=== PATIENT | female | born 1950 | race Caucasian/White ===

== ENCOUNTER 2018-01-10 18:52 | Inpatient (IN) ==
[2018-01-10] MEDS ORDERED: MORPHINE 4 MG/1 ML VIAL IV STA ×2 (19:21→20:49)
[2018-01-10] MEDS ORDERED: ACETAMINOPHEN 500 MG TABLET PO STA (19:22)
[2018-01-10] MEDS ORDERED: MORPHINE 4 MG/1 ML VIAL ONE ×2 (19:46→20:54)
[2018-01-10] MEDS ORDERED: ACETAMINOPHEN 500 MG TABLET ONE (19:47)
[2018-01-10 19:53] LABS: Basophils # 0.1 10*3/uL (0.0-0.2); Basophils % 0.3 % (0.0-0.8); Eosinophils % 0.1 % (0.00-10.9); Hematocrit 41.2 VOL% (35.7-47.0); Hemoglobin 13.8 GM/DL (12.0-16.0); Immature Granulocytes % 0.4 %; Immature Granulocytes Absolute 0.06 #; Lymphocytes # 0.6 10*3/uL (1.4-4.0); Lymphocytes % 3.8 % (21.3-54.2); Mean Corpuscular HGB Conc 33.5 GM/DL (32-36); Mean Corpuscular Hemoglobin 34 PG (27-34); Mean Corpuscular Volume 102.5 FL (87-102); Mean Platelet Volume 10.4 FL (9.6-12.0); Monocytes % 6.9 % (1.7-12.7); Neutrophils # 13.4 10*3/uL (1.4-7.4); Neutrophils % 88.5 % (38.7-73.9); Platelet Count 230 T/CUMM (130-400); Red Blood Count 4.02 MC/CUMM (3.8-5.5); Red Cell Distribution Width 14.9 % (9.3-17.3); White Blood Count 15.1 T/CUMM (4-12)
[2018-01-10 20:14] LABS: Band Neutrophils 2 % (0-10); Lymphocytes 7 % (20-55); Platelet Estimate Normal; Segmented Neutrophils 86 % (50-85); Total Cells Counted 100
[2018-01-10 20:15] LABS: Macrocytosis Slight
[2018-01-10 20:21] LABS: Calcium 9.3 MG/DL (8.5-10.1); Osmolality,Calculated 268.4 MOS/KG (273-304); Potassium 4.7 MMOL/L (3.5-5.1)
[2018-01-10] MEDS ORDERED: ALBUTEROL/IPRATROPIUM 3 ML NEB RESP TX STA (21:48)
[2018-01-10] MEDS ORDERED: ONDANSETRON 4 MG/2 ML VIAL IV PRN (23:28)
[2018-01-10] MEDS ORDERED: LACTULOSE 20 GM/30 ML UDCUP PO PRN (23:28)
[2018-01-11] MEDS: MORPHINE 4 MG/1 ML VIAL IV PRN ×2 (00:20→11:24)
[2018-01-11] MEDS ORDERED: KETOROLAC 60 MG/2 ML VIAL IM STA (01:05)
[2018-01-11] MEDS: SODIUM CHLORIDE 0.9% 1,000 ML IV SCH ×2 (02:20→15:41)
[2018-01-11] MEDS: LEVOTHYROXINE 75 MCG TABLET PO SCH (05:49)
[2018-01-11] MEDS: ENOXAPARIN 40 MG/0.4 ML SYRINGE SUBCUT SCH (11:28)
[2018-01-11] MEDS: CARBIDOPA/LEVODOPA 25-100 MG TABLET PO SCH ×3 (11:30→21:14)
[2018-01-11] MEDS: SPIRONOLACTONE 25 MG TABLET PO SCH (11:31)
[2018-01-11] MEDS: MAGNESIUM OXIDE 400 MG TABLET PO SCH ×2 (11:31→21:14)
[2018-01-11] MEDS: AMIODARONE 200 MG TABLET PO SCH (11:31)
[2018-01-11] MEDS: PRAMIPEXOLE 0.25 MG TABLET PO SCH ×2 (11:32→21:14)
[2018-01-11] MEDS: GABAPENTIN 100 MG CAPSULE PO SCH ×3 (11:33→21:14)
[2018-01-11] MEDS: PANTOPRAZOLE 40 MG TABLET PO SCH (11:33)
[2018-01-11] MEDS: FUROSEMIDE 40 MG TABLET PO SCH (11:33)
[2018-01-11] MEDS: COLESTIPOL 1 GM TABLET PO SCH (11:33)
[2018-01-11] MEDS: ASPIRIN EC 81 MG TABLET PO SCH (11:34)
[2018-01-11] MEDS: POTASSIUM CHLORIDE 20 MEQ TABLET PO SCH (11:34)
[2018-01-11] MEDS: DILTIAZEM CD 180 MG CAPSULE PO SCH (11:35)
[2018-01-11] MEDS: hydrALAZINE 25 MG TABLET PO SCH ×2 (11:35→21:14)
[2018-01-11] MEDS: IRON (CARBONYL)/VIT C/B12/FA TABLET PO SCH (11:35)
[2018-01-11] MEDS: AZELASTINE NASAL 137 MCG/SPRAY 30 ML BOTTLE BOTH NARES SCH ×2 (11:36→21:15)
[2018-01-11] MEDS: PRAVASTATIN 20 MG TABLET PO SCH (21:15)
[2018-01-11] MEDS ORDERED: ACETAMINOPHEN 325 MG TABLET PO PRN (21:57)
[2018-01-12 04:25] LABS: Amorphous Crystals,Urine Occasional /HPF (Few); Apearance,Urine Slightly Hazy (Clear); Bacteria,Urine Few /HPF (Few); Bilirubin,Urine Negative (Negative); Blood, Urine Large mg/dL (Negative); Glucose,Urine (UA) Negative (Negative); Granular Casts,Urine 4 /LPF (0-1); Ketones,Urine Negative (Negative); Mucus,Urine Few /LPF (Occasional); Nitrite,Urine Negative (Negative); Protein,Urine 100 MG/DL; RBC,Urine 1211 /HPF (0-4); Urine Color Amber (Yellow); Urine Specific Gravity 1.018 (1.001-1.035); Urine Urobilinogen < 2.0 EU/DL (0.2-1.0); WBC,Urine 38 /HPF (0-6)
[2018-01-12] MEDS: LEVOTHYROXINE 75 MCG TABLET PO SCH (05:25)
[2018-01-12] MEDS: SODIUM CHLORIDE 0.9% 1,000 ML IV SCH ×2 (05:25→18:07)
[2018-01-12] MEDS: MORPHINE 4 MG/1 ML VIAL IV PRN (08:12)
[2018-01-12] MEDS: AZELASTINE NASAL 137 MCG/SPRAY 30 ML BOTTLE BOTH NARES SCH ×2 (08:21→21:45)
[2018-01-12] MEDS: IRON (CARBONYL)/VIT C/B12/FA TABLET PO SCH (10:07)
[2018-01-12] MEDS: PANTOPRAZOLE 40 MG TABLET PO SCH (10:07)
[2018-01-12] MEDS: ASPIRIN EC 81 MG TABLET PO SCH (10:08)
[2018-01-12] MEDS: SPIRONOLACTONE 25 MG TABLET PO SCH (10:08)
[2018-01-12] MEDS: DILTIAZEM CD 180 MG CAPSULE PO SCH (10:08)
[2018-01-12] MEDS: CARBIDOPA/LEVODOPA 25-100 MG TABLET PO SCH ×3 (10:09→21:44)
[2018-01-12] MEDS: AMIODARONE 200 MG TABLET PO SCH (10:09)
[2018-01-12] MEDS: FUROSEMIDE 40 MG TABLET PO SCH (10:09)
[2018-01-12] MEDS: COLESTIPOL 1 GM TABLET PO SCH (10:10)
[2018-01-12] MEDS: MAGNESIUM OXIDE 400 MG TABLET PO SCH ×2 (10:10→21:44)
[2018-01-12] MEDS: GABAPENTIN 100 MG CAPSULE PO SCH ×3 (10:10→21:44)
[2018-01-12] MEDS: PRAMIPEXOLE 0.25 MG TABLET PO SCH ×2 (10:10→21:44)
[2018-01-12] MEDS: POTASSIUM CHLORIDE 20 MEQ TABLET PO SCH (10:11)
[2018-01-12] MEDS: ENOXAPARIN 40 MG/0.4 ML SYRINGE SUBCUT SCH (10:12)
[2018-01-12] MEDS: hydrALAZINE 25 MG TABLET PO SCH ×2 (10:12→21:44)
[2018-01-12] MEDS ORDERED: cefTRIAXone 1,000 MG in SYRINGE 1 EACH IV ONE (10:54)
[2018-01-12] MEDS ORDERED: MAGNESIUM HYDROXIDE SUSP 30 ML UDCUP PO ONE (11:09)
[2018-01-12] MEDS: ALBUTEROL/IPRATROPIUM 3 ML NEB RESP TX SCH ×2 (13:30→20:05)
[2018-01-12] MEDS ORDERED: [UNRECOGNIZED DRUG - OTHER] INH SCH (13:30)
[2018-01-12] MEDS: MONTELUKAST 10 MG TABLET PO SCH (15:05)
[2018-01-12] MEDS: FLUTICASONE 50 MCG NASAL SPRAY 16 GM BOTTLE BOTH NARES SCH ×2 (15:09→21:45)
[2018-01-12] MEDS: PRAVASTATIN 20 MG TABLET PO SCH (21:44)
[2018-01-13] MEDS: ALBUTEROL/IPRATROPIUM 3 ML NEB RESP TX SCH ×4 (00:08→19:35)
[2018-01-13] MEDS: SODIUM CHLORIDE 0.9% 1,000 ML IV SCH ×2 (06:53→20:52)
[2018-01-13] MEDS: LEVOTHYROXINE 75 MCG TABLET PO SCH (06:53)
[2018-01-13] MEDS: POTASSIUM CHLORIDE 20 MEQ TABLET PO SCH (08:59)
[2018-01-13] MEDS: MONTELUKAST 10 MG TABLET PO SCH (08:59)
[2018-01-13] MEDS: CARBIDOPA/LEVODOPA 25-100 MG TABLET PO SCH ×3 (08:59→20:54)
[2018-01-13] MEDS: GABAPENTIN 100 MG CAPSULE PO SCH ×3 (08:59→20:55)
[2018-01-13] MEDS: FUROSEMIDE 40 MG TABLET PO SCH (08:59)
[2018-01-13] MEDS: SPIRONOLACTONE 25 MG TABLET PO SCH (09:00)
[2018-01-13] MEDS: DILTIAZEM CD 180 MG CAPSULE PO SCH (09:00)
[2018-01-13] MEDS: AMIODARONE 200 MG TABLET PO SCH (09:00)
[2018-01-13] MEDS: MAGNESIUM OXIDE 400 MG TABLET PO SCH ×2 (09:00→20:55)
[2018-01-13] MEDS: COLESTIPOL 1 GM TABLET PO SCH (09:00)
[2018-01-13] MEDS: AZELASTINE NASAL 137 MCG/SPRAY 30 ML BOTTLE BOTH NARES SCH ×2 (09:00→20:57)
[2018-01-13] MEDS: ASPIRIN EC 81 MG TABLET PO SCH (09:00)
[2018-01-13] MEDS: IRON (CARBONYL)/VIT C/B12/FA TABLET PO SCH (09:00)
[2018-01-13] MEDS: PANTOPRAZOLE 40 MG TABLET PO SCH (09:00)
[2018-01-13] MEDS: hydrALAZINE 25 MG TABLET PO SCH ×2 (09:00→20:55)
[2018-01-13] MEDS: FLUTICASONE 50 MCG NASAL SPRAY 16 GM BOTTLE BOTH NARES SCH ×2 (09:01→20:57)
[2018-01-13] MEDS: PRAMIPEXOLE 0.25 MG TABLET PO SCH ×2 (09:03→20:54)
[2018-01-13] MEDS: ENOXAPARIN 40 MG/0.4 ML SYRINGE SUBCUT SCH (09:04)
[2018-01-13 14:51] LABS: Basophils % 0.2 % (0.0-0.8); Hematocrit 36.8 VOL% (35.7-47.0); Hemoglobin 11.6 GM/DL (12.0-16.0); Immature Granulocytes % 0.9 %; Immature Granulocytes Absolute 0.11 #; Lymphocytes # 0.7 10*3/uL (1.4-4.0); Lymphocytes % 5.8 % (21.3-54.2); Mean Corpuscular HGB Conc 31.5 GM/DL (32-36); Mean Corpuscular Hemoglobin 34 PG (27-34); Mean Corpuscular Volume 107.3 FL (87-102); Mean Platelet Volume 10.8 FL (9.6-12.0); Neutrophils # 10.8 10*3/uL (1.4-7.4); Neutrophils % 85.1 % (38.7-73.9); Platelet Count 183 T/CUMM (130-400); Red Blood Count 3.43 MC/CUMM (3.8-5.5); White Blood Count 12.7 T/CUMM (4-12)
[2018-01-13 15:07] LABS: Osmolality,Calculated 269.2 MOS/KG (273-304); Potassium 4.4 MMOL/L (3.5-5.1)
[2018-01-13] MEDS: PRAVASTATIN 20 MG TABLET PO SCH (20:55)
[2018-01-14] MEDS: ALBUTEROL/IPRATROPIUM 3 ML NEB RESP TX SCH ×4 (01:40→19:27)
[2018-01-14 05:35] LABS: Basophils % 0.2 % (0.0-0.8); Hematocrit 34.1 VOL% (35.7-47.0); Immature Granulocytes % 0.6 %; Immature Granulocytes Absolute 0.08 #; Lymphocytes # 0.6 10*3/uL (1.4-4.0); Lymphocytes % 4.5 % (21.3-54.2); Mean Corpuscular HGB Conc 32.3 GM/DL (32-36); Mean Corpuscular Hemoglobin 34 PG (27-34); Mean Platelet Volume 11.6 FL (9.6-12.0); Monocytes # 1.1 10*3/uL (0.11-0.8); Monocytes % 8.6 % (1.7-12.7); Neutrophils # 10.8 10*3/uL (1.4-7.4); Neutrophils % 86.1 % (38.7-73.9); Platelet Count 187 T/CUMM (130-400); Red Blood Count 3.28 MC/CUMM (3.8-5.5); Red Cell Distribution Width 15.1 % (9.3-17.3); White Blood Count 12.5 T/CUMM (4-12)
[2018-01-14 05:51] LABS: Calcium 7.8 MG/DL (8.5-10.1); Osmolality,Calculated 268.4 MOS/KG (273-304); Potassium 4.3 MMOL/L (3.5-5.1)
[2018-01-14] MEDS: LEVOTHYROXINE 75 MCG TABLET PO SCH (05:52)
[2018-01-14 05:59] LABS: Hypochromasia 1+; Lymphocytes 2 % (20-55); Ovalocytes Slight; Platelet Estimate Normal; Segmented Neutrophils 87 % (50-85); Total Cells Counted 100
[2018-01-14] MEDS ORDERED: FUROSEMIDE 40 MG/4 ML VIAL IV ONE (07:10)
[2018-01-14] MEDS: ENOXAPARIN 40 MG/0.4 ML SYRINGE SUBCUT SCH (08:34)
[2018-01-14] MEDS: FUROSEMIDE 40 MG TABLET PO SCH (08:34)
[2018-01-14 09:32] LABS: ABG Base Excess -2.8 MMOL/L (-2.5-2.5); ABG HCO3 21.9 MMOL/L (20-26); ABG Oxygen Saturation 87.6 % (95-100); ABG PCO2 38.9 MM HG (35-48); ABG PH 7.366 (7.35-7.45); ABG PO2 54.6 MM HG (80-95)
[2018-01-14 10:43] LABS: ABG Base Excess -1.8 MMOL/L (-2.5-2.5); ABG HCO3 22.7 MMOL/L (20-26); ABG Oxygen Saturation 89.1 % (95-100); ABG PCO2 38.2 MM HG (35-48); ABG PH 7.386 (7.35-7.45); ABG PO2 56.6 MM HG (80-95); ABG TCO2 20.5 MMOL/L (23-27)
[2018-01-14 12:06] LABS: Apearance,Urine CLEAR (Clear); Bilirubin,Urine Negative (Negative); Blood, Urine Negative (Negative); Glucose,Urine (UA) Negative (Negative); Ketones,Urine Negative (Negative); Nitrite,Urine Negative (Negative); Protein,Urine Negative; RBC,Urine 2 /HPF (0-4); Urine Color Yellow (Yellow); Urine Urobilinogen < 2.0 EU/DL (0.2-1.0); WBC,Urine 3 /HPF (0-6)
[2018-01-14] MEDS: AMIODARONE 200 MG TABLET PO SCH (15:24)
[2018-01-14] MEDS: MONTELUKAST 10 MG TABLET PO SCH (15:24)
[2018-01-14] MEDS: hydrALAZINE 25 MG TABLET PO SCH ×2 (15:24→20:51)
[2018-01-14] MEDS: SPIRONOLACTONE 25 MG TABLET PO SCH (15:24)
[2018-01-14] MEDS: GABAPENTIN 100 MG CAPSULE PO SCH ×3 (15:26→20:51)
[2018-01-14] MEDS: MAGNESIUM OXIDE 400 MG TABLET PO SCH ×2 (15:26→20:51)
[2018-01-14] MEDS: COLESTIPOL 1 GM TABLET PO SCH (15:26)
[2018-01-14] MEDS: PANTOPRAZOLE 40 MG TABLET PO SCH (15:26)
[2018-01-14] MEDS: PRAMIPEXOLE 0.25 MG TABLET PO SCH ×2 (15:26→20:51)
[2018-01-14] MEDS: ASPIRIN EC 81 MG TABLET PO SCH (15:27)
[2018-01-14] MEDS: POTASSIUM CHLORIDE 20 MEQ TABLET PO SCH (15:27)
[2018-01-14] MEDS: CARBIDOPA/LEVODOPA 25-100 MG TABLET PO SCH ×3 (15:27→20:51)
[2018-01-14] MEDS: DILTIAZEM CD 180 MG CAPSULE PO SCH (15:27)
[2018-01-14] MEDS: AZELASTINE NASAL 137 MCG/SPRAY 30 ML BOTTLE BOTH NARES SCH ×2 (15:28→20:58)
[2018-01-14] MEDS: FLUTICASONE 50 MCG NASAL SPRAY 16 GM BOTTLE BOTH NARES SCH ×2 (15:28→20:58)
[2018-01-14] MEDS: IRON (CARBONYL)/VIT C/B12/FA TABLET PO SCH (15:28)
[2018-01-14] MEDS: PRAVASTATIN 20 MG TABLET PO SCH (20:51)
[2018-01-15] MEDS: ALBUTEROL/IPRATROPIUM 3 ML NEB RESP TX SCH ×4 (00:16→19:33)
[2018-01-15] MEDS: LEVOTHYROXINE 75 MCG TABLET PO SCH (06:33)
[2018-01-15] MEDS: DILTIAZEM CD 180 MG CAPSULE PO SCH (08:26)
[2018-01-15] MEDS: ENOXAPARIN 40 MG/0.4 ML SYRINGE SUBCUT SCH (08:26)
[2018-01-15] MEDS: PRAMIPEXOLE 0.25 MG TABLET PO SCH ×2 (08:26→20:46)
[2018-01-15] MEDS: POTASSIUM CHLORIDE 20 MEQ TABLET PO SCH (08:26)
[2018-01-15] MEDS: GABAPENTIN 100 MG CAPSULE PO SCH ×3 (08:27→20:46)
[2018-01-15] MEDS: MONTELUKAST 10 MG TABLET PO SCH (08:27)
[2018-01-15] MEDS: COLESTIPOL 1 GM TABLET PO SCH (08:27)
[2018-01-15] MEDS: MAGNESIUM OXIDE 400 MG TABLET PO SCH ×2 (08:27→20:46)
[2018-01-15] MEDS: SPIRONOLACTONE 25 MG TABLET PO SCH (08:27)
[2018-01-15] MEDS: PANTOPRAZOLE 40 MG TABLET PO SCH (08:27)
[2018-01-15] MEDS: AZELASTINE NASAL 137 MCG/SPRAY 30 ML BOTTLE BOTH NARES SCH ×2 (08:28→20:47)
[2018-01-15] MEDS: ASPIRIN EC 81 MG TABLET PO SCH (08:28)
[2018-01-15] MEDS: AMIODARONE 200 MG TABLET PO SCH (08:28)
[2018-01-15] MEDS: FUROSEMIDE 40 MG TABLET PO SCH (08:28)
[2018-01-15] MEDS: hydrALAZINE 25 MG TABLET PO SCH ×2 (08:28→20:46)
[2018-01-15] MEDS: CARBIDOPA/LEVODOPA 25-100 MG TABLET PO SCH ×3 (08:28→20:46)
[2018-01-15] MEDS: IRON (CARBONYL)/VIT C/B12/FA TABLET PO SCH (08:29)
[2018-01-15] MEDS: FLUTICASONE 50 MCG NASAL SPRAY 16 GM BOTTLE BOTH NARES SCH ×2 (08:29→20:47)
[2018-01-15] MEDS: LEVOFLOXACIN 250 MG TABLET PO SCH (08:32)
[2018-01-15] MEDS: FUROSEMIDE 40 MG/4 ML VIAL IV SCH (08:43)
[2018-01-15 08:45] LABS: Basophils % 0.4 % (0.0-0.8); Eosinophils % 0.4 % (0.00-10.9); Hematocrit 34.8 VOL% (35.7-47.0); Immature Granulocytes % 0.6 %; Immature Granulocytes Absolute 0.06 #; Lymphocytes # 0.6 10*3/uL (1.4-4.0); Lymphocytes % 6.3 % (21.3-54.2); Mean Corpuscular HGB Conc 31.6 GM/DL (32-36); Mean Corpuscular Hemoglobin 34 PG (27-34); Mean Corpuscular Volume 106.1 FL (87-102); Mean Platelet Volume 10.9 FL (9.6-12.0); Monocytes # 0.9 10*3/uL (0.11-0.8); Monocytes % 9.3 % (1.7-12.7); Platelet Count 204 T/CUMM (130-400); Red Blood Count 3.28 MC/CUMM (3.8-5.5); Red Cell Distribution Width 14.9 % (9.3-17.3); White Blood Count 9.7 T/CUMM (4-12)
[2018-01-15 09:24] LABS: Calcium 8.3 MG/DL (8.5-10.1); Osmolality,Calculated 279.8 MOS/KG (273-304); Potassium 3.5 MMOL/L (3.5-5.1)
[2018-01-15] MEDS: CLINDAMYCIN INJ 600 MG in PREMIX 1 EACH IV SCH ×2 (09:35→16:38)
[2018-01-15] MEDS: ZINC OXIDE PASTE 113 GM TUBE TOP SCH (10:58)
[2018-01-15] MEDS: PRAVASTATIN 20 MG TABLET PO SCH (20:46)
[2018-01-15] MEDS: MORPHINE 4 MG/1 ML VIAL IV PRN (22:06)
[2018-01-16] MEDS: ALBUTEROL/IPRATROPIUM 3 ML NEB RESP TX SCH ×5 (00:09→23:53)
[2018-01-16] MEDS: CLINDAMYCIN INJ 600 MG in PREMIX 1 EACH IV SCH ×3 (01:52→16:53)
[2018-01-16] MEDS: ZINC OXIDE PASTE 113 GM TUBE TOP SCH ×3 (01:53→20:39)
[2018-01-16 05:57] LABS: Basophils % 0.4 % (0.0-0.8); Eosinophils # 0.2 10*3/uL (0.0-0.87); Eosinophils % 1.6 % (0.00-10.9); Hematocrit 33.7 VOL% (35.7-47.0); Hemoglobin 11.1 GM/DL (12.0-16.0); Immature Granulocytes % 0.4 %; Immature Granulocytes Absolute 0.04 #; Lymphocytes # 0.6 10*3/uL (1.4-4.0); Lymphocytes % 6.6 % (21.3-54.2); Mean Corpuscular HGB Conc 32.9 GM/DL (32-36); Mean Corpuscular Hemoglobin 34 PG (27-34); Mean Corpuscular Volume 103.4 FL (87-102); Mean Platelet Volume 11.8 FL (9.6-12.0); Monocytes # 0.9 10*3/uL (0.11-0.8); Monocytes % 9.8 % (1.7-12.7); NRBC # 0.03 10*3/uL; Neutrophils # 7.4 10*3/uL (1.4-7.4); Neutrophils % 81.2 % (38.7-73.9); Platelet Count 234 T/CUMM (130-400); Red Blood Count 3.26 MC/CUMM (3.8-5.5); Red Cell Distribution Width 14.7 % (9.3-17.3); White Blood Count 9.1 T/CUMM (4-12)
[2018-01-16] MEDS: LEVOTHYROXINE 75 MCG TABLET PO SCH (06:09)
[2018-01-16 06:22] LABS: Calcium 8.3 MG/DL (8.5-10.1); Osmolality,Calculated 275.2 MOS/KG (273-304); Potassium 4.3 MMOL/L (3.5-5.1)
[2018-01-16] MEDS: ENOXAPARIN 40 MG/0.4 ML SYRINGE SUBCUT SCH (08:28)
[2018-01-16] MEDS: PRAMIPEXOLE 0.25 MG TABLET PO SCH ×2 (08:28→20:39)
[2018-01-16] MEDS: COLESTIPOL 1 GM TABLET PO SCH (08:28)
[2018-01-16] MEDS: DILTIAZEM CD 180 MG CAPSULE PO SCH (08:28)
[2018-01-16] MEDS: SPIRONOLACTONE 25 MG TABLET PO SCH (08:29)
[2018-01-16] MEDS: MAGNESIUM OXIDE 400 MG TABLET PO SCH ×2 (08:29→20:39)
[2018-01-16] MEDS: LEVOFLOXACIN 250 MG TABLET PO SCH (08:29)
[2018-01-16] MEDS: MONTELUKAST 10 MG TABLET PO SCH (08:29)
[2018-01-16] MEDS: POTASSIUM CHLORIDE 20 MEQ TABLET PO SCH ×2 (08:29→08:46)
[2018-01-16] MEDS: AMIODARONE 200 MG TABLET PO SCH (08:29)
[2018-01-16] MEDS: GABAPENTIN 100 MG CAPSULE PO SCH ×3 (08:29→20:39)
[2018-01-16] MEDS: PANTOPRAZOLE 40 MG TABLET PO SCH (08:29)
[2018-01-16] MEDS: hydrALAZINE 25 MG TABLET PO SCH ×2 (08:30→20:39)
[2018-01-16] MEDS: AZELASTINE NASAL 137 MCG/SPRAY 30 ML BOTTLE BOTH NARES SCH ×2 (08:30→20:37)
[2018-01-16] MEDS: CARBIDOPA/LEVODOPA 25-100 MG TABLET PO SCH ×3 (08:30→20:39)
[2018-01-16] MEDS: ASPIRIN EC 81 MG TABLET PO SCH (08:30)
[2018-01-16] MEDS: FUROSEMIDE 40 MG/4 ML VIAL IV SCH (08:31)
[2018-01-16] MEDS: IRON (CARBONYL)/VIT C/B12/FA TABLET PO SCH (08:31)
[2018-01-16] MEDS: CYANOCOBALAMIN 1000 MCG/1 ML VIAL IM SCH (08:31)
[2018-01-16] MEDS: FLUTICASONE 50 MCG NASAL SPRAY 16 GM BOTTLE BOTH NARES SCH ×2 (08:31→20:37)
[2018-01-16] MEDS ORDERED: LORazepam 2 MG/1 ML VIAL IV PRN (09:06)
[2018-01-16 10:27] LABS: Basophils # 0.1 10*3/uL (0.0-0.2); Basophils % 0.5 % (0.0-0.8); Eosinophils # 0.1 10*3/uL (0.0-0.87); Eosinophils % 1.1 % (0.00-10.9); Hematocrit 36.1 VOL% (35.7-47.0); Hemoglobin 11.7 GM/DL (12.0-16.0); Immature Granulocytes % 0.6 %; Immature Granulocytes Absolute 0.06 #; Lymphocytes # 0.5 10*3/uL (1.4-4.0); Lymphocytes % 5.1 % (21.3-54.2); Mean Corpuscular HGB Conc 32.4 GM/DL (32-36); Mean Corpuscular Hemoglobin 34 PG (27-34); Mean Corpuscular Volume 105.2 FL (87-102); Mean Platelet Volume 11.7 FL (9.6-12.0); Monocytes # 0.7 10*3/uL (0.11-0.8); Neutrophils # 8.1 10*3/uL (1.4-7.4); Neutrophils % 85.7 % (38.7-73.9); Platelet Count 261 T/CUMM (130-400); Red Blood Count 3.43 MC/CUMM (3.8-5.5); Red Cell Distribution Width 14.8 % (9.3-17.3); White Blood Count 9.5 T/CUMM (4-12)
[2018-01-16 10:56] LABS: Folate > 24.0 NG/ML (5.4-24.0); Vitamin B12 > 2000 PG/ML (211-911)
[2018-01-16 11:31] LABS: Sedimentation Rate-Westergren 88 MM/HR (0-30)
[2018-01-16] MEDS: PRAVASTATIN 20 MG TABLET PO SCH (20:39)
[2018-01-16] MEDS: PHENOL 1.4% THROAT SPRAY 177 ML BOTTLE PO PRN (21:30)
[2018-01-17] MEDS: CLINDAMYCIN INJ 600 MG in PREMIX 1 EACH IV SCH ×3 (00:44→17:31)
[2018-01-17 05:15] LABS: Basophils # 0.1 10*3/uL (0.0-0.2); Basophils % 0.5 % (0.0-0.8); Eosinophils # 0.2 10*3/uL (0.0-0.87); Eosinophils % 1.6 % (0.00-10.9); Hematocrit 34.6 VOL% (35.7-47.0); Hemoglobin 11.2 GM/DL (12.0-16.0); Immature Granulocytes % 0.7 %; Immature Granulocytes Absolute 0.07 #; Lymphocytes # 0.7 10*3/uL (1.4-4.0); Lymphocytes % 7.2 % (21.3-54.2); Mean Corpuscular HGB Conc 32.4 GM/DL (32-36); Mean Corpuscular Hemoglobin 34 PG (27-34); Mean Corpuscular Volume 103.6 FL (87-102); Mean Platelet Volume 10.7 FL (9.6-12.0); Monocytes % 9.9 % (1.7-12.7); Neutrophils # 7.7 10*3/uL (1.4-7.4); Neutrophils % 80.1 % (38.7-73.9); Platelet Count 280 T/CUMM (130-400); Red Blood Count 3.34 MC/CUMM (3.8-5.5); Red Cell Distribution Width 14.7 % (9.3-17.3); White Blood Count 9.6 T/CUMM (4-12)
[2018-01-17] MEDS: LEVOTHYROXINE 75 MCG TABLET PO SCH (05:40)
[2018-01-17] MEDS: ALBUTEROL/IPRATROPIUM 3 ML NEB RESP TX SCH ×3 (07:10→20:26)
[2018-01-17] MEDS ORDERED: MORPHINE 4 MG/1 ML VIAL IV PRN (07:54)
[2018-01-17 08:19] LABS: Hemoglobin A1 (Alkaline) 97.3 % (96.5-98.5); Hemoglobin A2 (Alkaline) 2.7 % (1.5-3.5)
[2018-01-17] MEDS: CYANOCOBALAMIN 1000 MCG/1 ML VIAL IM SCH (09:28)
[2018-01-17] MEDS: ENOXAPARIN 40 MG/0.4 ML SYRINGE SUBCUT SCH (09:29)
[2018-01-17] MEDS: MAGNESIUM OXIDE 400 MG TABLET PO SCH ×2 (09:29→21:07)
[2018-01-17] MEDS: FUROSEMIDE 40 MG/4 ML VIAL IV SCH ×2 (09:29→15:40)
[2018-01-17] MEDS: hydrALAZINE 25 MG TABLET PO SCH ×2 (09:30→21:07)
[2018-01-17] MEDS: GABAPENTIN 100 MG CAPSULE PO SCH ×3 (09:30→21:08)
[2018-01-17] MEDS: CARBIDOPA/LEVODOPA 25-100 MG TABLET PO SCH ×3 (09:30→21:08)
[2018-01-17] MEDS: MONTELUKAST 10 MG TABLET PO SCH (09:30)
[2018-01-17] MEDS: PRAMIPEXOLE 0.25 MG TABLET PO SCH ×2 (09:30→21:08)
[2018-01-17] MEDS: COLESTIPOL 1 GM TABLET PO SCH (09:30)
[2018-01-17] MEDS: LEVOFLOXACIN 250 MG TABLET PO SCH (09:31)
[2018-01-17] MEDS: POTASSIUM CHLORIDE 20 MEQ TABLET PO SCH (09:31)
[2018-01-17] MEDS: PANTOPRAZOLE 40 MG TABLET PO SCH (09:31)
[2018-01-17] MEDS: SPIRONOLACTONE 25 MG TABLET PO SCH (09:31)
[2018-01-17] MEDS: ASPIRIN EC 81 MG TABLET PO SCH (09:31)
[2018-01-17] MEDS: FLUTICASONE 50 MCG NASAL SPRAY 16 GM BOTTLE BOTH NARES SCH ×2 (09:32→21:09)
[2018-01-17] MEDS: ZINC OXIDE PASTE 113 GM TUBE TOP SCH ×2 (09:32→21:09)
[2018-01-17] MEDS: AZELASTINE NASAL 137 MCG/SPRAY 30 ML BOTTLE BOTH NARES SCH ×2 (09:32→21:11)
[2018-01-17] MEDS: DILTIAZEM CD 180 MG CAPSULE PO SCH (09:36)
[2018-01-17] MEDS: AMIODARONE 200 MG TABLET PO SCH (09:37)
[2018-01-17] MEDS: IRON (CARBONYL)/VIT C/B12/FA TABLET PO SCH (09:39)
[2018-01-17] MEDS: PRAVASTATIN 20 MG TABLET PO SCH (21:08)
[2018-01-18] MEDS: ALBUTEROL/IPRATROPIUM 3 ML NEB RESP TX SCH ×4 (00:38→20:06)
[2018-01-18] MEDS: CLINDAMYCIN INJ 600 MG in PREMIX 1 EACH IV SCH ×3 (00:55→17:58)
[2018-01-18 05:33] LABS: Basophils # 0.1 10*3/uL (0.0-0.2); Basophils % 0.6 % (0.0-0.8); Eosinophils # 0.1 10*3/uL (0.0-0.87); Eosinophils % 1.2 % (0.00-10.9); Hematocrit 38.7 VOL% (35.7-47.0); Immature Granulocytes % 0.8 %; Immature Granulocytes Absolute 0.08 #; Lymphocytes # 0.9 10*3/uL (1.4-4.0); Lymphocytes % 8.7 % (21.3-54.2); Mean Corpuscular Hemoglobin 33 PG (27-34); Mean Corpuscular Volume 105.4 FL (87-102); Mean Platelet Volume 10.5 FL (9.6-12.0); Monocytes # 0.8 10*3/uL (0.11-0.8); Monocytes % 8.4 % (1.7-12.7); Neutrophils # 7.9 10*3/uL (1.4-7.4); Neutrophils % 80.3 % (38.7-73.9); Platelet Count 326 T/CUMM (130-400); Red Blood Count 3.67 MC/CUMM (3.8-5.5); Red Cell Distribution Width 14.7 % (9.3-17.3); White Blood Count 9.8 T/CUMM (4-12)
[2018-01-18 06:01] LABS: Calcium 8.9 MG/DL (8.5-10.1); Osmolality,Calculated 267.4 MOS/KG (273-304); Potassium 4.3 MMOL/L (3.5-5.1)
[2018-01-18] MEDS: LEVOTHYROXINE 75 MCG TABLET PO SCH (06:32)
[2018-01-18] MEDS: COLESTIPOL 1 GM TABLET PO SCH (08:54)
[2018-01-18] MEDS: PRAMIPEXOLE 0.25 MG TABLET PO SCH ×2 (08:54→21:42)
[2018-01-18] MEDS: ENOXAPARIN 40 MG/0.4 ML SYRINGE SUBCUT SCH (08:54)
[2018-01-18] MEDS: MONTELUKAST 10 MG TABLET PO SCH (08:55)
[2018-01-18] MEDS: metOLazone 5 MG TABLET PO SCH (08:55)
[2018-01-18] MEDS: hydrALAZINE 25 MG TABLET PO SCH ×2 (08:55→20:07)
[2018-01-18] MEDS: ASPIRIN EC 81 MG TABLET PO SCH (08:55)
[2018-01-18] MEDS: AMIODARONE 200 MG TABLET PO SCH (08:55)
[2018-01-18] MEDS: SPIRONOLACTONE 25 MG TABLET PO SCH (08:55)
[2018-01-18] MEDS: LEVOFLOXACIN 250 MG TABLET PO SCH (08:56)
[2018-01-18] MEDS: POTASSIUM CHLORIDE 20 MEQ TABLET PO SCH (08:56)
[2018-01-18] MEDS: MAGNESIUM OXIDE 400 MG TABLET PO SCH ×2 (08:56→20:09)
[2018-01-18] MEDS: GABAPENTIN 100 MG CAPSULE PO SCH ×3 (08:56→21:42)
[2018-01-18] MEDS: DILTIAZEM CD 180 MG CAPSULE PO SCH (08:56)
[2018-01-18] MEDS: FUROSEMIDE 40 MG/4 ML VIAL IV SCH ×2 (08:57→17:58)
[2018-01-18] MEDS: CYANOCOBALAMIN 1000 MCG/1 ML VIAL IM SCH (08:57)
[2018-01-18] MEDS: IRON (CARBONYL)/VIT C/B12/FA TABLET PO SCH (08:57)
[2018-01-18] MEDS: PANTOPRAZOLE 40 MG TABLET PO SCH (08:57)
[2018-01-18] MEDS: FLUTICASONE 50 MCG NASAL SPRAY 16 GM BOTTLE BOTH NARES SCH ×2 (08:58→21:43)
[2018-01-18] MEDS: ZINC OXIDE PASTE 113 GM TUBE TOP SCH ×2 (08:58→21:42)
[2018-01-18] MEDS: AZELASTINE NASAL 137 MCG/SPRAY 30 ML BOTTLE BOTH NARES SCH ×2 (08:58→21:42)
[2018-01-18] MEDS: CARBIDOPA/LEVODOPA 25-100 MG TABLET PO SCH ×3 (09:05→21:42)
[2018-01-18 09:43] LABS: ABG Base Excess 3.4 MMOL/L (-2.5-2.5); ABG HCO3 27.1 MMOL/L (20-26); ABG Oxygen Saturation 78.7 % (95-100); ABG PCO2 45.4 MM HG (35-48); ABG PH 7.409 (7.35-7.45); ABG PO2 45.6 MM HG (80-95); ABG TCO2 25.4 MMOL/L (23-27)
[2018-01-18] MEDS: methylPREDNISolone SOD SUC 40 MG/1 ML VIAL IV SCH ×2 (12:20→17:58)
[2018-01-18] MEDS: PRAVASTATIN 20 MG TABLET PO SCH (21:42)
[2018-01-18] MEDS: PHENOL 1.4% THROAT SPRAY 177 ML BOTTLE PO PRN (21:45)
[2018-01-19] MEDS: CLINDAMYCIN INJ 600 MG in PREMIX 1 EACH IV SCH ×3 (00:01→17:05)
[2018-01-19] MEDS: methylPREDNISolone SOD SUC 40 MG/1 ML VIAL IV SCH ×3 (00:02→15:15)
[2018-01-19] MEDS: ALBUTEROL/IPRATROPIUM 3 ML NEB RESP TX SCH ×4 (00:22→19:37)
[2018-01-19] MEDS: LEVOTHYROXINE 75 MCG TABLET PO SCH (05:58)
[2018-01-19] MEDS: FUROSEMIDE 40 MG/4 ML VIAL IV SCH ×2 (08:41→15:12)
[2018-01-19] MEDS: COLESTIPOL 1 GM TABLET PO SCH (08:46)
[2018-01-19] MEDS: PRAMIPEXOLE 0.25 MG TABLET PO SCH ×2 (08:46→21:32)
[2018-01-19] MEDS: LEVOFLOXACIN 250 MG TABLET PO SCH (08:47)
[2018-01-19] MEDS: CARBIDOPA/LEVODOPA 25-100 MG TABLET PO SCH ×3 (08:48→21:32)
[2018-01-19] MEDS: DILTIAZEM CD 180 MG CAPSULE PO SCH (08:48)
[2018-01-19] MEDS: POTASSIUM CHLORIDE 20 MEQ TABLET PO SCH (08:48)
[2018-01-19] MEDS: GABAPENTIN 100 MG CAPSULE PO SCH ×3 (08:49→21:32)
[2018-01-19] MEDS: MONTELUKAST 10 MG TABLET PO SCH (08:49)
[2018-01-19] MEDS: SPIRONOLACTONE 25 MG TABLET PO SCH (08:49)
[2018-01-19] MEDS: AMIODARONE 200 MG TABLET PO SCH (08:49)
[2018-01-19] MEDS: hydrALAZINE 25 MG TABLET PO SCH ×2 (08:50→21:33)
[2018-01-19] MEDS: metOLazone 5 MG TABLET PO SCH (08:50)
[2018-01-19] MEDS: PANTOPRAZOLE 40 MG TABLET PO SCH (08:50)
[2018-01-19] MEDS: MAGNESIUM OXIDE 400 MG TABLET PO SCH ×2 (08:51→21:32)
[2018-01-19] MEDS: ENOXAPARIN 40 MG/0.4 ML SYRINGE SUBCUT SCH (09:04)
[2018-01-19] MEDS: CYANOCOBALAMIN 1000 MCG/1 ML VIAL IM SCH (09:05)
[2018-01-19] MEDS: AZELASTINE NASAL 137 MCG/SPRAY 30 ML BOTTLE BOTH NARES SCH ×2 (09:07→21:32)
[2018-01-19] MEDS: ZINC OXIDE PASTE 113 GM TUBE TOP SCH ×2 (09:07→21:33)
[2018-01-19] MEDS: FLUTICASONE 50 MCG NASAL SPRAY 16 GM BOTTLE BOTH NARES SCH ×2 (09:09→21:32)
[2018-01-19] MEDS: IRON (CARBONYL)/VIT C/B12/FA TABLET PO SCH (09:23)
[2018-01-19] MEDS: ASPIRIN EC 81 MG TABLET PO SCH (09:23)
[2018-01-19] MEDS: PRAVASTATIN 20 MG TABLET PO SCH (21:32)
[2018-01-20] MEDS: methylPREDNISolone SOD SUC 40 MG/1 ML VIAL IV SCH ×3 (00:36→18:04)
[2018-01-20] MEDS: ALBUTEROL/IPRATROPIUM 3 ML NEB RESP TX SCH ×4 (01:16→19:50)
[2018-01-20] MEDS: CLINDAMYCIN INJ 600 MG in PREMIX 1 EACH IV SCH ×3 (04:57→18:03)
[2018-01-20 05:27] LABS: Basophils % 0.2 % (0.0-0.8); Hematocrit 36.7 VOL% (35.7-47.0); Hemoglobin 12.6 GM/DL (12.0-16.0); Immature Granulocytes % 0.8 %; Immature Granulocytes Absolute 0.14 #; Lymphocytes # 0.7 10*3/uL (1.4-4.0); Lymphocytes % 4.1 % (21.3-54.2); Mean Corpuscular HGB Conc 34.3 GM/DL (32-36); Mean Corpuscular Hemoglobin 34 PG (27-34); Mean Corpuscular Volume 97.9 FL (87-102); Mean Platelet Volume 11.2 FL (9.6-12.0); Monocytes # 0.6 10*3/uL (0.11-0.8); Monocytes % 3.3 % (1.7-12.7); Neutrophils # 15.7 10*3/uL (1.4-7.4); Neutrophils % 91.6 % (38.7-73.9); Platelet Count 468 T/CUMM (130-400); Red Blood Count 3.75 MC/CUMM (3.8-5.5); Red Cell Distribution Width 14.4 % (9.3-17.3); White Blood Count 17.1 T/CUMM (4-12)
[2018-01-20 05:57] LABS: Calcium 8.6 MG/DL (8.5-10.1); Osmolality,Calculated 271.7 MOS/KG (273-304); Potassium 3.9 MMOL/L (3.5-5.1)
[2018-01-20 06:06] LABS: Band Neutrophils 3 % (0-10); Lymphocytes 7 % (20-55); Macrocytosis 3+; Platelet Estimate Increased; Segmented Neutrophils 88 % (50-85); Total Cells Counted 100
[2018-01-20] MEDS: LEVOTHYROXINE 75 MCG TABLET PO SCH (09:00)
[2018-01-20] MEDS: MAGNESIUM OXIDE 400 MG TABLET PO SCH ×2 (09:23→21:28)
[2018-01-20] MEDS: MONTELUKAST 10 MG TABLET PO SCH (09:26)
[2018-01-20] MEDS: PANTOPRAZOLE 40 MG TABLET PO SCH (09:26)
[2018-01-20] MEDS: AMIODARONE 200 MG TABLET PO SCH (09:26)
[2018-01-20] MEDS: ASPIRIN EC 81 MG TABLET PO SCH (09:26)
[2018-01-20] MEDS: SPIRONOLACTONE 25 MG TABLET PO SCH (09:27)
[2018-01-20] MEDS: LEVOFLOXACIN 250 MG TABLET PO SCH (09:27)
[2018-01-20] MEDS: CARBIDOPA/LEVODOPA 25-100 MG TABLET PO SCH ×3 (09:28→21:24)
[2018-01-20] MEDS: POTASSIUM CHLORIDE 20 MEQ TABLET PO SCH (09:29)
[2018-01-20] MEDS: FUROSEMIDE 40 MG/4 ML VIAL IV SCH ×2 (09:30→15:40)
[2018-01-20] MEDS: GABAPENTIN 100 MG CAPSULE PO SCH ×3 (09:30→21:25)
[2018-01-20] MEDS: PRAMIPEXOLE 0.25 MG TABLET PO SCH ×2 (09:31→21:25)
[2018-01-20] MEDS: hydrALAZINE 25 MG TABLET PO SCH ×2 (09:31→21:25)
[2018-01-20] MEDS: COLESTIPOL 1 GM TABLET PO SCH (09:32)
[2018-01-20] MEDS: ENOXAPARIN 40 MG/0.4 ML SYRINGE SUBCUT SCH (09:32)
[2018-01-20] MEDS: DILTIAZEM CD 180 MG CAPSULE PO SCH (09:35)
[2018-01-20] MEDS: AZELASTINE NASAL 137 MCG/SPRAY 30 ML BOTTLE BOTH NARES SCH ×2 (09:39→21:27)
[2018-01-20] MEDS: ZINC OXIDE PASTE 113 GM TUBE TOP SCH ×2 (09:40→21:59)
[2018-01-20] MEDS: FLUTICASONE 50 MCG NASAL SPRAY 16 GM BOTTLE BOTH NARES SCH ×2 (09:40→21:27)
[2018-01-20] MEDS: CYANOCOBALAMIN 1000 MCG/1 ML VIAL IM SCH (09:50)
[2018-01-20] MEDS: IRON (CARBONYL)/VIT C/B12/FA TABLET PO SCH (10:01)
[2018-01-20] MEDS: metOLazone 5 MG TABLET PO SCH (10:01)
[2018-01-20] MEDS: PRAVASTATIN 20 MG TABLET PO SCH (21:24)
[2018-01-21] MEDS: methylPREDNISolone SOD SUC 40 MG/1 ML VIAL IV SCH ×3 (00:36→15:28)
[2018-01-21] MEDS: CLINDAMYCIN INJ 600 MG in PREMIX 1 EACH IV SCH ×3 (00:37→17:50)
[2018-01-21] MEDS: ALBUTEROL/IPRATROPIUM 3 ML NEB RESP TX SCH ×4 (00:46→19:18)
[2018-01-21] MEDS: LEVOTHYROXINE 75 MCG TABLET PO SCH (06:27)
[2018-01-21] MEDS: POTASSIUM CHLORIDE 20 MEQ TABLET PO SCH (09:00)
[2018-01-21] MEDS: MAGNESIUM OXIDE 400 MG TABLET PO SCH ×2 (09:01→20:34)
[2018-01-21] MEDS: ASPIRIN EC 81 MG TABLET PO SCH (09:01)
[2018-01-21] MEDS: ENOXAPARIN 40 MG/0.4 ML SYRINGE SUBCUT SCH (09:01)
[2018-01-21] MEDS: DILTIAZEM CD 180 MG CAPSULE PO SCH (09:01)
[2018-01-21] MEDS: SPIRONOLACTONE 25 MG TABLET PO SCH (09:04)
[2018-01-21] MEDS: PANTOPRAZOLE 40 MG TABLET PO SCH (09:04)
[2018-01-21] MEDS: CARBIDOPA/LEVODOPA 25-100 MG TABLET PO SCH ×3 (09:04→20:32)
[2018-01-21] MEDS: AMIODARONE 200 MG TABLET PO SCH (09:04)
[2018-01-21] MEDS: PRAMIPEXOLE 0.25 MG TABLET PO SCH ×2 (09:05→20:32)
[2018-01-21] MEDS: MONTELUKAST 10 MG TABLET PO SCH (09:05)
[2018-01-21] MEDS: COLESTIPOL 1 GM TABLET PO SCH (09:06)
[2018-01-21] MEDS: LEVOFLOXACIN 250 MG TABLET PO SCH (09:06)
[2018-01-21] MEDS: IRON (CARBONYL)/VIT C/B12/FA TABLET PO SCH (09:08)
[2018-01-21] MEDS: metOLazone 5 MG TABLET PO SCH (09:08)
[2018-01-21] MEDS: GABAPENTIN 100 MG CAPSULE PO SCH ×3 (09:09→20:32)
[2018-01-21] MEDS: hydrALAZINE 25 MG TABLET PO SCH ×2 (09:09→20:32)
[2018-01-21] MEDS: FUROSEMIDE 40 MG/4 ML VIAL IV SCH ×2 (09:09→15:31)
[2018-01-21] MEDS: FLUTICASONE 50 MCG NASAL SPRAY 16 GM BOTTLE BOTH NARES SCH ×2 (09:11→20:37)
[2018-01-21] MEDS: AZELASTINE NASAL 137 MCG/SPRAY 30 ML BOTTLE BOTH NARES SCH ×2 (09:11→20:36)
[2018-01-21] MEDS: ZINC OXIDE PASTE 113 GM TUBE TOP SCH ×2 (09:15→20:38)
[2018-01-21] MEDS: PRAVASTATIN 20 MG TABLET PO SCH (20:31)
[2018-01-22] MEDS: methylPREDNISolone SOD SUC 40 MG/1 ML VIAL IV SCH ×2 (00:33→08:41)
[2018-01-22] MEDS: CLINDAMYCIN INJ 600 MG in PREMIX 1 EACH IV SCH ×2 (00:34→08:35)
[2018-01-22] MEDS: ALBUTEROL/IPRATROPIUM 3 ML NEB RESP TX SCH ×3 (00:38→13:40)
[2018-01-22] MEDS: LEVOTHYROXINE 75 MCG TABLET PO SCH (05:50)
[2018-01-22 08:11] LABS: Basophils % 0.1 % (0.0-0.8); Hemoglobin 13.5 GM/DL (12.0-16.0); Immature Granulocytes % 1.2 %; Immature Granulocytes Absolute 0.17 #; Lymphocytes # 0.8 10*3/uL (1.4-4.0); Lymphocytes % 5.7 % (21.3-54.2); Mean Corpuscular HGB Conc 33.8 GM/DL (32-36); Mean Corpuscular Hemoglobin 33 PG (27-34); Mean Corpuscular Volume 97.3 FL (87-102); Mean Platelet Volume 9.9 FL (9.6-12.0); Monocytes # 0.9 10*3/uL (0.11-0.8); Monocytes % 6.8 % (1.7-12.7); Neutrophils # 11.8 10*3/uL (1.4-7.4); Neutrophils % 86.2 % (38.7-73.9); Platelet Count 565 T/CUMM (130-400); Red Blood Count 4.11 MC/CUMM (3.8-5.5); Red Cell Distribution Width 13.9 % (9.3-17.3); White Blood Count 13.7 T/CUMM (4-12)
[2018-01-22] MEDS: GABAPENTIN 100 MG CAPSULE PO SCH (08:36)
[2018-01-22 08:37] LABS: Calcium 8.6 MG/DL (8.5-10.1); Osmolality,Calculated 257.6 MOS/KG (273-304); Potassium 3.5 MMOL/L (3.5-5.1)
[2018-01-22] MEDS: DILTIAZEM CD 180 MG CAPSULE PO SCH (08:37)
[2018-01-22] MEDS: POTASSIUM CHLORIDE 20 MEQ TABLET PO SCH (08:38)
[2018-01-22] MEDS: ASPIRIN EC 81 MG TABLET PO SCH (08:38)
[2018-01-22] MEDS: CARBIDOPA/LEVODOPA 25-100 MG TABLET PO SCH (08:38)
[2018-01-22] MEDS: COLESTIPOL 1 GM TABLET PO SCH (08:38)
[2018-01-22] MEDS: MONTELUKAST 10 MG TABLET PO SCH (08:38)
[2018-01-22] MEDS: AMIODARONE 200 MG TABLET PO SCH (08:38)
[2018-01-22] MEDS: LEVOFLOXACIN 250 MG TABLET PO SCH (08:38)
[2018-01-22] MEDS: metOLazone 5 MG TABLET PO SCH (08:39)
[2018-01-22] MEDS: SPIRONOLACTONE 25 MG TABLET PO SCH (08:39)
[2018-01-22] MEDS: PRAMIPEXOLE 0.25 MG TABLET PO SCH (08:39)
[2018-01-22] MEDS: FUROSEMIDE 40 MG/4 ML VIAL IV SCH (08:40)
[2018-01-22] MEDS: ZINC OXIDE PASTE 113 GM TUBE TOP SCH (08:54)
[2018-01-22] MEDS: ENOXAPARIN 40 MG/0.4 ML SYRINGE SUBCUT SCH (08:54)
[2018-01-22] MEDS: FLUTICASONE 50 MCG NASAL SPRAY 16 GM BOTTLE BOTH NARES SCH (08:54)
[2018-01-22] MEDS: AZELASTINE NASAL 137 MCG/SPRAY 30 ML BOTTLE BOTH NARES SCH (08:54)
[2018-01-22] MEDS: PANTOPRAZOLE 40 MG TABLET PO SCH (08:55)
[2018-01-22] MEDS: MAGNESIUM OXIDE 400 MG TABLET PO SCH (11:01)
[2018-01-22] MEDS: IRON (CARBONYL)/VIT C/B12/FA TABLET PO SCH (11:02)
[2018-01-22] MEDS: hydrALAZINE 25 MG TABLET PO SCH (11:02)
[2018-01-22 14:48] VITALS: BP 113/67
== END 2018-01-22 14:41 | DRG 551 ==
LOC: EDBD → EDUNIT# → N.ED 18:52 → SUATTDRO 23:28 → N.EDINP 23:28 → N.3E 01-11 01:10 → N.CC 01-14 10:27
PROVIDERS: ADMIT Internal Medicine Geriatric Medicine; ATTEND Internal Medicine

== ENCOUNTER 2018-02-02 18:47 | Inpatient (IN) ==
[2018-02-02] MEDS ORDERED: DEXTROSE 50% 25 GM/50 ML VIAL IV ONE ×2 (20:30→23:30)
[2018-02-02] MEDS ORDERED: INSULIN REGULAR 100 UNIT/ML IV ONE ×2 (20:30→23:30)
[2018-02-02] MEDS ORDERED: SODIUM CHLORIDE 0.9% 1,000 ML IV PRN (20:54)
[2018-02-02] MEDS ORDERED: LEVOFLOXACIN INJ 500 MG in PREMIX 1 EACH IV ONE (21:00)
[2018-02-02] MEDS ORDERED: metroNIDAZOLE INJ 500 MG in PREMIX 1 EACH IV ONE (21:00)
[2018-02-02] MEDS ORDERED: ONDANSETRON 4 MG/2 ML VIAL IV PRN (22:42)
[2018-02-02] MEDS ORDERED: SEVOFLURANE 1 UNIT/15 MINUTE INH ONE (23:11)
[2018-02-02] MEDS ORDERED: fentaNYL 100 MCG/2 ML VIAL ONE (23:11)
[2018-02-02] MEDS ORDERED: PHENYLEPHRINE 10 MG/1 ML VIAL IV ONE (23:12)
[2018-02-02] MEDS ORDERED: SODIUM CHLORIDE 0.9% 250 ML IV ONE (23:12)
[2018-02-02] MEDS ORDERED: ETOMIDATE 40 MG/20 ML VIAL IV ONE (23:12)
[2018-02-02] MEDS ORDERED: ROCURONIUM 100 MG/10 ML VIAL IV ONE (23:12)
[2018-02-02] MEDS ORDERED: MIDAZOLAM 10 MG/2 ML VIAL ONE (23:12)
[2018-02-02] MEDS ORDERED: PHENYLEPHRINE 1 MG/10 ML SYRINGE IV ONE (23:12)
[2018-02-02] MEDS ORDERED: SODIUM CHLORIDE 0.9% 1,000 ML IV ONE (23:12)
[2018-02-02 23:28] LABS: ABG Base Excess -3.5 MMOL/L (-2.5-2.5); ABG HCO3 21.5 MMOL/L (20-26); ABG Oxygen Saturation 98.3 % (95-100); ABG PCO2 48.1 MM HG (35-48); ABG PH 7.293 (7.35-7.45); ABG TCO2 21.2 MMOL/L (23-27); Allen Test Positive; Pt O2 Delivery Device Ventilator
[2018-02-02 23:35] LABS: Apearance,Urine Slightly Hazy (Clear); Bacteria,Urine Occasional /HPF (Few); Bilirubin,Urine Negative (Negative); Blood, Urine Negative (Negative); Glucose,Urine (UA) 150 mg/dL (Negative); Granular Casts,Urine 2 /LPF (0-1); Ketones,Urine Negative (Negative); Mucus,Urine Occasional /LPF (Occasional); Nitrite,Urine Negative (Negative); Protein,Urine Negative; RBC,Urine <1 /HPF (0-4); Urine Color Yellow (Yellow); Urine Specific Gravity 1.016 (1.001-1.035); Urine Urobilinogen < 2.0 EU/DL (0.2-1.0); WBC,Urine 1 /HPF (0-6)
[2018-02-02 23:40] LABS: Hematocrit 35.2 VOL% (35.7-47.0); Hemoglobin 11.1 GM/DL (12.0-16.0)
[2018-02-02] MEDS ORDERED: ALBUMIN 5% 12.5 GM in PREMIX 1 EACH IV ONE (23:59)
[2018-02-03] MEDS: DEXTROSE 5% NACL 0.9% 1,000 ML IV SCH ×4 (00:17→23:55)
[2018-02-03] MEDS: MORPHINE 4 MG/1 ML VIAL IV PRN ×4 (00:20→20:35)
[2018-02-03] MEDS: PHENYLEPHRINE DRIP 40 MG/250 ML PREMIX IV PRN ×2 (00:23→20:25)
[2018-02-03] MEDS: PROPOFOL 1,000 MG/100 ML BOTTLE IV SCH ×3 (00:49→22:09)
[2018-02-03 04:29] LABS: ABG Base Excess -1.1 MMOL/L (-2.5-2.5); ABG HCO3 23.5 MMOL/L (20-26); ABG Oxygen Saturation 99.2 % (95-100); ABG PCO2 40.4 MM HG (35-48); ABG TCO2 21.8 MMOL/L (23-27); Allen Test Positive; Pt O2 Delivery Device Ventilator
[2018-02-03] MEDS: metroNIDAZOLE INJ 500 MG in PREMIX 1 EACH IV SCH (05:15)
[2018-02-03 06:03] LABS: Hematocrit 29.6 VOL% (35.7-47.0); Hemoglobin 9.7 GM/DL (12.0-16.0)
[2018-02-03 06:42] LABS: Albumin 2.2 G/DL (3.4-5.0); Bilirubin,Total 0.9 MG/DL (0.2-1.0); Calcium 7.2 MG/DL (8.5-10.1); Osmolality,Calculated 271.2 MOS/KG (273-304); Potassium 4.5 MMOL/L (3.5-5.1); Total Protein 4.9 G/DL (6.4-8.3)
[2018-02-03] MEDS ORDERED: GLUCAGON 1 MG VIAL IM PRN (09:07)
[2018-02-03] MEDS: PANTOPRAZOLE 40 MG VIAL IV SCH (09:56)
[2018-02-03 14:35] LABS: Hematocrit 30.6 VOL% (35.7-47.0)
[2018-02-03] MEDS: INSULIN LISPRO 100 UNIT/ML SUBCUT SCH ×3 (19:31→23:18)
[2018-02-03] MEDS ORDERED: LEVOFLOXACIN INJ 500 MG in PREMIX 1 EACH IV SCH (20:00)
[2018-02-04] MEDS: DEXTROSE 5% NACL 0.9% 1,000 ML IV SCH ×4 (02:10→18:05)
[2018-02-04] MEDS: MORPHINE 4 MG/1 ML VIAL IV PRN ×3 (02:32→12:47)
[2018-02-04 03:35] LABS: ABG Base Excess -0.4 MMOL/L (-2.5-2.5); ABG HCO3 24.1 MMOL/L (20-26); ABG Oxygen Saturation 98.9 % (95-100); ABG PCO2 39.1 MM HG (35-48); ABG PH 7.401 (7.35-7.45); ABG TCO2 22.4 MMOL/L (23-27)
[2018-02-04] MEDS: INSULIN LISPRO 100 UNIT/ML SUBCUT SCH ×5 (04:26→19:46)
[2018-02-04 06:13] LABS: Calcium 7.5 MG/DL (8.5-10.1); Osmolality,Calculated 272.8 MOS/KG (273-304); Potassium 4.3 MMOL/L (3.5-5.1)
[2018-02-04 07:24] LABS: ABG Base Excess 0.1 MMOL/L (-2.5-2.5); ABG HCO3 24.6 MMOL/L (20-26); ABG PCO2 39.4 MM HG (35-48); ABG PH 7.405 (7.35-7.45); ABG TCO2 22.7 MMOL/L (23-27); Pt O2 Delivery Device Ventilator
[2018-02-04 08:05] LABS: Basophils % 0.1 % (0.0-0.8); Eosinophils % 0.1 % (0.00-10.9); Hematocrit 28.3 VOL% (35.7-47.0); Hemoglobin 9.3 GM/DL (12.0-16.0); Immature Granulocytes % 1.4 %; Immature Granulocytes Absolute 0.24 #; Lymphocytes # 0.7 10*3/uL (1.4-4.0); Lymphocytes % 3.9 % (21.3-54.2); Mean Corpuscular HGB Conc 32.9 GM/DL (32-36); Mean Corpuscular Hemoglobin 34 PG (27-34); Mean Corpuscular Volume 102.5 FL (87-102); Monocytes # 0.8 10*3/uL (0.11-0.8); Monocytes % 4.7 % (1.7-12.7); Neutrophils # 15.4 10*3/uL (1.4-7.4); Neutrophils % 89.8 % (38.7-73.9)
[2018-02-04 08:06] LABS: Red Blood Count 2.76 MC/CUMM (3.8-5.5); White Blood Count 17.1 T/CUMM (4-12)
[2018-02-04 08:07] LABS: Platelet Count 160 T/CUMM (130-400)
[2018-02-04 08:33] LABS: Hypochromasia 1+; Lymphocytes 2 % (20-55); Ovalocytes Slight; Platelet Estimate Normal; Segmented Neutrophils 97 % (50-85); Total Cells Counted 100
[2018-02-04 08:51] LABS: ABG Base Excess 0.2 MMOL/L (-2.5-2.5); ABG HCO3 24.7 MMOL/L (20-26); ABG Oxygen Saturation 98.6 % (95-100); ABG PCO2 40.6 MM HG (35-48); ABG PH 7.398 (7.35-7.45); ABG TCO2 23.1 MMOL/L (23-27)
[2018-02-04] MEDS: PANTOPRAZOLE 40 MG VIAL IV SCH (09:40)
[2018-02-04] MEDS: metroNIDAZOLE INJ 500 MG in PREMIX 1 EACH IV SCH (10:19)
[2018-02-05] MEDS: INSULIN LISPRO 100 UNIT/ML SUBCUT SCH ×2 (00:45→04:26)
[2018-02-05] MEDS: DEXTROSE 5% NACL 0.9% 1,000 ML IV SCH ×2 (02:35→07:05)
[2018-02-05] MEDS: COLESTIPOL 1 GM TABLET PO SCH (08:25)
[2018-02-05] MEDS: SPIRONOLACTONE 25 MG TABLET PO SCH (08:25)
[2018-02-05] MEDS: AMIODARONE 200 MG TABLET PO SCH (08:25)
[2018-02-05] MEDS: LEVOFLOXACIN INJ 500 MG in PREMIX 1 EACH IV SCH (08:25)
[2018-02-05] MEDS: SODIUM CHLORIDE 0.45% 1,000 ML IV SCH ×2 (08:25→20:44)
[2018-02-05] MEDS: DILTIAZEM CD 180 MG CAPSULE PO SCH (08:25)
[2018-02-05] MEDS: ASPIRIN CHEW 81 MG TABLET PO SCH (08:25)
[2018-02-05] MEDS: CHOLECALCIFEROL 400 UNIT TABLET PO SCH (08:26)
[2018-02-05] MEDS: PRAMIPEXOLE 0.25 MG TABLET PO SCH ×2 (08:26→20:43)
[2018-02-05] MEDS: LEVOTHYROXINE 75 MCG TABLET PO SCH (08:26)
[2018-02-05] MEDS: IRON (CARBONYL)/VIT C/B12/FA TABLET PO SCH (08:26)
[2018-02-05] MEDS: POTASSIUM CHLORIDE 20 MEQ TABLET PO SCH (08:26)
[2018-02-05] MEDS: MONTELUKAST 10 MG TABLET PO SCH (08:26)
[2018-02-05] MEDS: MAGNESIUM OXIDE 400 MG TABLET PO SCH (08:26)
[2018-02-05] MEDS: PANTOPRAZOLE 40 MG VIAL IV SCH (08:26)
[2018-02-05] MEDS: GABAPENTIN 100 MG CAPSULE PO SCH ×3 (08:26→20:43)
[2018-02-05] MEDS: metroNIDAZOLE INJ 500 MG in PREMIX 1 EACH IV SCH ×3 (09:43→23:37)
[2018-02-05] MEDS: AZELASTINE NASAL 137 MCG/SPRAY 30 ML BOTTLE BOTH NARES SCH ×2 (12:12→20:43)
[2018-02-05] MEDS: ALBUTEROL/IPRATROPIUM 3 ML NEB RESP TX SCH ×2 (13:22→19:28)
[2018-02-05] MEDS: ATORVASTATIN 10 MG TABLET PO SCH (20:43)
[2018-02-06] MEDS: AZELASTINE NASAL 137 MCG/SPRAY 30 ML BOTTLE BOTH NARES SCH ×3 (01:07→20:55)
[2018-02-06] MEDS: LEVOTHYROXINE 75 MCG TABLET PO SCH (05:39)
[2018-02-06] MEDS: LEVOFLOXACIN INJ 500 MG in PREMIX 1 EACH IV SCH (06:15)
[2018-02-06 07:30] LABS: Basophils % 0.1 % (0.0-0.8); Eosinophils # 0.1 10*3/uL (0.0-0.87); Eosinophils % 0.7 % (0.00-10.9); Hematocrit 24.8 VOL% (35.7-47.0); Hemoglobin 8.1 GM/DL (12.0-16.0); Immature Granulocytes % 0.6 %; Immature Granulocytes Absolute 0.06 #; Lymphocytes # 0.5 10*3/uL (1.4-4.0); Mean Corpuscular HGB Conc 32.7 GM/DL (32-36); Mean Corpuscular Hemoglobin 33 PG (27-34); Mean Corpuscular Volume 101.2 FL (87-102); Mean Platelet Volume 10.2 FL (9.6-12.0); Monocytes # 0.4 10*3/uL (0.11-0.8); Monocytes % 4.1 % (1.7-12.7); Neutrophils # 8.7 10*3/uL (1.4-7.4); Neutrophils % 89.5 % (38.7-73.9); Platelet Count 136 T/CUMM (130-400); Red Blood Count 2.45 MC/CUMM (3.8-5.5); Red Cell Distribution Width 15.3 % (9.3-17.3); White Blood Count 9.7 T/CUMM (4-12)
[2018-02-06 07:37] LABS: Calcium 7.7 MG/DL (8.5-10.1); Osmolality,Calculated 275.5 MOS/KG (273-304); Potassium 3.7 MMOL/L (3.5-5.1)
[2018-02-06] MEDS: ALBUTEROL/IPRATROPIUM 3 ML NEB RESP TX SCH ×3 (07:41→20:22)
[2018-02-06] MEDS: PANTOPRAZOLE 40 MG VIAL IV SCH (10:17)
[2018-02-06] MEDS: COLESTIPOL 1 GM TABLET PO SCH (10:18)
[2018-02-06] MEDS: IRON (CARBONYL)/VIT C/B12/FA TABLET PO SCH (10:18)
[2018-02-06] MEDS: POTASSIUM CHLORIDE 20 MEQ TABLET PO SCH (10:18)
[2018-02-06] MEDS: MAGNESIUM OXIDE 400 MG TABLET PO SCH (10:18)
[2018-02-06] MEDS: PRAMIPEXOLE 0.25 MG TABLET PO SCH ×2 (10:18→20:55)
[2018-02-06] MEDS: MONTELUKAST 10 MG TABLET PO SCH (10:18)
[2018-02-06] MEDS: ASPIRIN CHEW 81 MG TABLET PO SCH (10:18)
[2018-02-06] MEDS: CHOLECALCIFEROL 400 UNIT TABLET PO SCH (10:18)
[2018-02-06] MEDS: DILTIAZEM CD 180 MG CAPSULE PO SCH (10:19)
[2018-02-06] MEDS: GABAPENTIN 100 MG CAPSULE PO SCH ×3 (10:19→20:51)
[2018-02-06] MEDS: SPIRONOLACTONE 25 MG TABLET PO SCH (10:19)
[2018-02-06] MEDS: metroNIDAZOLE INJ 500 MG in PREMIX 1 EACH IV SCH ×2 (10:20→15:53)
[2018-02-06] MEDS: AMIODARONE 200 MG TABLET PO SCH (10:20)
[2018-02-06] MEDS: SODIUM CHLORIDE 0.45% 1,000 ML IV SCH (15:54)
[2018-02-06] MEDS: ATORVASTATIN 10 MG TABLET PO SCH (20:51)
[2018-02-07] MEDS: metroNIDAZOLE INJ 500 MG in PREMIX 1 EACH IV SCH ×3 (00:33→15:19)
[2018-02-07] MEDS: SODIUM CHLORIDE 0.45% 1,000 ML IV SCH ×3 (00:42→19:07)
[2018-02-07] MEDS: LEVOTHYROXINE 75 MCG TABLET PO SCH (06:00)
[2018-02-07] MEDS: LEVOFLOXACIN INJ 500 MG in PREMIX 1 EACH IV SCH (06:00)
[2018-02-07] MEDS: ALBUTEROL/IPRATROPIUM 3 ML NEB RESP TX SCH ×3 (07:59→19:23)
[2018-02-07] MEDS: MAGNESIUM OXIDE 400 MG TABLET PO SCH (10:10)
[2018-02-07] MEDS: POTASSIUM CHLORIDE 20 MEQ TABLET PO SCH (10:11)
[2018-02-07] MEDS: GABAPENTIN 100 MG CAPSULE PO SCH ×3 (10:11→20:32)
[2018-02-07] MEDS: IRON (CARBONYL)/VIT C/B12/FA TABLET PO SCH (10:11)
[2018-02-07] MEDS: SPIRONOLACTONE 25 MG TABLET PO SCH (10:12)
[2018-02-07] MEDS: COLESTIPOL 1 GM TABLET PO SCH (10:12)
[2018-02-07] MEDS: DILTIAZEM CD 180 MG CAPSULE PO SCH (10:12)
[2018-02-07] MEDS: CHOLECALCIFEROL 400 UNIT TABLET PO SCH (10:13)
[2018-02-07] MEDS: AMIODARONE 200 MG TABLET PO SCH (10:13)
[2018-02-07] MEDS: MONTELUKAST 10 MG TABLET PO SCH (10:13)
[2018-02-07] MEDS: PRAMIPEXOLE 0.25 MG TABLET PO SCH ×2 (10:13→20:33)
[2018-02-07] MEDS: PANTOPRAZOLE 40 MG VIAL IV SCH (10:13)
[2018-02-07] MEDS: ASPIRIN CHEW 81 MG TABLET PO SCH (10:13)
[2018-02-07] MEDS: AZELASTINE NASAL 137 MCG/SPRAY 30 ML BOTTLE BOTH NARES SCH ×2 (14:35→20:34)
[2018-02-07] MEDS: ATORVASTATIN 10 MG TABLET PO SCH (20:33)
[2018-02-08] MEDS: metroNIDAZOLE INJ 500 MG in PREMIX 1 EACH IV SCH ×3 (01:50→15:50)
[2018-02-08] MEDS: SODIUM CHLORIDE 0.45% 1,000 ML IV SCH (02:40)
[2018-02-08 05:21] LABS: Basophils % 0.1 % (0.0-0.8); Eosinophils # 0.1 10*3/uL (0.0-0.87); Eosinophils % 1.6 % (0.00-10.9); Hematocrit 22.5 VOL% (35.7-47.0); Hemoglobin 7.4 GM/DL (12.0-16.0); Immature Granulocytes % 0.9 %; Immature Granulocytes Absolute 0.06 #; Lymphocytes # 0.4 10*3/uL (1.4-4.0); Lymphocytes % 5.3 % (21.3-54.2); Mean Corpuscular HGB Conc 32.9 GM/DL (32-36); Mean Corpuscular Hemoglobin 33 PG (27-34); Mean Corpuscular Volume 101.4 FL (87-102); Mean Platelet Volume 10.8 FL (9.6-12.0); Monocytes # 0.4 10*3/uL (0.11-0.8); Monocytes % 5.1 % (1.7-12.7); Neutrophils # 6.1 10*3/uL (1.4-7.4); Platelet Count 119 T/CUMM (130-400); Red Blood Count 2.22 MC/CUMM (3.8-5.5); Red Cell Distribution Width 15.8 % (9.3-17.3)
[2018-02-08 05:53] LABS: Calcium 7.6 MG/DL (8.5-10.1); Osmolality,Calculated 271.7 MOS/KG (273-304); Potassium 3.9 MMOL/L (3.5-5.1)
[2018-02-08] MEDS: LEVOTHYROXINE 75 MCG TABLET PO SCH (06:15)
[2018-02-08] MEDS: LEVOFLOXACIN INJ 500 MG in PREMIX 1 EACH IV SCH (06:15)
[2018-02-08] MEDS: ALBUTEROL/IPRATROPIUM 3 ML NEB RESP TX SCH ×3 (07:42→19:16)
[2018-02-08] MEDS: PANTOPRAZOLE 40 MG VIAL IV SCH (08:46)
[2018-02-08] MEDS: PRAMIPEXOLE 0.25 MG TABLET PO SCH ×2 (08:47→20:16)
[2018-02-08] MEDS: COLESTIPOL 1 GM TABLET PO SCH (08:47)
[2018-02-08] MEDS: CHOLECALCIFEROL 400 UNIT TABLET PO SCH (08:47)
[2018-02-08] MEDS: MONTELUKAST 10 MG TABLET PO SCH (08:47)
[2018-02-08] MEDS: MAGNESIUM OXIDE 400 MG TABLET PO SCH (08:47)
[2018-02-08] MEDS: AMIODARONE 200 MG TABLET PO SCH (08:47)
[2018-02-08] MEDS: POTASSIUM CHLORIDE 20 MEQ TABLET PO SCH (08:47)
[2018-02-08] MEDS: ASPIRIN CHEW 81 MG TABLET PO SCH (08:47)
[2018-02-08] MEDS: IRON (CARBONYL)/VIT C/B12/FA TABLET PO SCH (08:47)
[2018-02-08] MEDS: DILTIAZEM CD 180 MG CAPSULE PO SCH (08:47)
[2018-02-08] MEDS: SPIRONOLACTONE 25 MG TABLET PO SCH (08:48)
[2018-02-08] MEDS: GABAPENTIN 100 MG CAPSULE PO SCH ×3 (08:48→20:16)
[2018-02-08] MEDS: AZELASTINE NASAL 137 MCG/SPRAY 30 ML BOTTLE BOTH NARES SCH ×2 (10:47→20:22)
[2018-02-08] MEDS: ATORVASTATIN 10 MG TABLET PO SCH (20:16)
[2018-02-08] MEDS: DESITIN 4OZ/NYSTATIN 15 GRAM MIXTURE PASTE TOP SCH (20:21)
[2018-02-09] MEDS: metroNIDAZOLE INJ 500 MG in PREMIX 1 EACH IV SCH ×3 (00:22→13:17)
[2018-02-09 06:19] LABS: Basophils % 0.2 % (0.0-0.8); Eosinophils # 0.1 10*3/uL (0.0-0.87); Eosinophils % 1.5 % (0.00-10.9); Hematocrit 27.7 VOL% (35.7-47.0); Hemoglobin 8.9 GM/DL (12.0-16.0); Immature Granulocytes % 0.6 %; Immature Granulocytes Absolute 0.04 #; Lymphocytes # 0.7 10*3/uL (1.4-4.0); Lymphocytes % 10.2 % (21.3-54.2); Mean Corpuscular HGB Conc 32.1 GM/DL (32-36); Mean Corpuscular Hemoglobin 33 PG (27-34); Mean Corpuscular Volume 102.2 FL (87-102); Mean Platelet Volume 10.8 FL (9.6-12.0); Monocytes # 0.5 10*3/uL (0.11-0.8); NRBC # 0.02 10*3/uL; Neutrophils # 5.2 10*3/uL (1.4-7.4); Neutrophils % 80.5 % (38.7-73.9); Platelet Count 137 T/CUMM (130-400); Red Blood Count 2.71 MC/CUMM (3.8-5.5); White Blood Count 6.5 T/CUMM (4-12)
[2018-02-09] MEDS: LEVOTHYROXINE 75 MCG TABLET PO SCH (06:39)
[2018-02-09] MEDS: LEVOFLOXACIN INJ 500 MG in PREMIX 1 EACH IV SCH (06:40)
[2018-02-09] MEDS: ALBUTEROL/IPRATROPIUM 3 ML NEB RESP TX SCH ×3 (07:40→19:19)
[2018-02-09] MEDS: POTASSIUM CHLORIDE 20 MEQ TABLET PO SCH (08:07)
[2018-02-09] MEDS: MONTELUKAST 10 MG TABLET PO SCH (08:07)
[2018-02-09] MEDS: IRON (CARBONYL)/VIT C/B12/FA TABLET PO SCH (08:07)
[2018-02-09] MEDS: COLESTIPOL 1 GM TABLET PO SCH (08:07)
[2018-02-09] MEDS: PRAMIPEXOLE 0.25 MG TABLET PO SCH ×2 (08:07→20:21)
[2018-02-09] MEDS: GABAPENTIN 100 MG CAPSULE PO SCH ×3 (08:07→20:21)
[2018-02-09] MEDS: CHOLECALCIFEROL 400 UNIT TABLET PO SCH (08:07)
[2018-02-09] MEDS: PANTOPRAZOLE 40 MG VIAL IV SCH ×2 (08:07→13:17)
[2018-02-09] MEDS: ASPIRIN CHEW 81 MG TABLET PO SCH (08:07)
[2018-02-09] MEDS: MAGNESIUM OXIDE 400 MG TABLET PO SCH (08:07)
[2018-02-09] MEDS: SPIRONOLACTONE 25 MG TABLET PO SCH (08:07)
[2018-02-09] MEDS: AMIODARONE 200 MG TABLET PO SCH (08:07)
[2018-02-09] MEDS: DESITIN 4OZ/NYSTATIN 15 GRAM MIXTURE PASTE TOP SCH ×2 (08:08→20:21)
[2018-02-09] MEDS: DILTIAZEM CD 180 MG CAPSULE PO SCH (08:08)
[2018-02-09] MEDS: AZELASTINE NASAL 137 MCG/SPRAY 30 ML BOTTLE BOTH NARES SCH ×2 (08:08→20:20)
[2018-02-09] MEDS: PANTOPRAZOLE 40 MG TABLET PO SCH (14:24)
[2018-02-09] MEDS: metroNIDAZOLE 500 MG TABLET PO SCH ×2 (14:24→21:47)
[2018-02-09] MEDS: ATORVASTATIN 10 MG TABLET PO SCH (20:21)
[2018-02-10] MEDS: metroNIDAZOLE 500 MG TABLET PO SCH ×3 (05:06→21:29)
[2018-02-10] MEDS: LEVOTHYROXINE 75 MCG TABLET PO SCH (05:34)
[2018-02-10] MEDS: LEVOFLOXACIN 500 MG TABLET PO SCH (06:16)
[2018-02-10] MEDS: ALBUTEROL/IPRATROPIUM 3 ML NEB RESP TX SCH ×3 (07:17→19:48)
[2018-02-10] MEDS: POTASSIUM CHLORIDE 20 MEQ TABLET PO SCH (10:04)
[2018-02-10] MEDS: IRON (CARBONYL)/VIT C/B12/FA TABLET PO SCH (10:04)
[2018-02-10] MEDS: ASPIRIN CHEW 81 MG TABLET PO SCH (10:04)
[2018-02-10] MEDS: MONTELUKAST 10 MG TABLET PO SCH (10:05)
[2018-02-10] MEDS: AMIODARONE 200 MG TABLET PO SCH (10:05)
[2018-02-10] MEDS: MAGNESIUM OXIDE 400 MG TABLET PO SCH (10:05)
[2018-02-10] MEDS: PRAMIPEXOLE 0.25 MG TABLET PO SCH ×2 (10:05→21:03)
[2018-02-10] MEDS: GABAPENTIN 100 MG CAPSULE PO SCH ×3 (10:05→21:03)
[2018-02-10] MEDS: COLESTIPOL 1 GM TABLET PO SCH (10:06)
[2018-02-10] MEDS: PANTOPRAZOLE 40 MG TABLET PO SCH (10:06)
[2018-02-10] MEDS: DILTIAZEM CD 180 MG CAPSULE PO SCH (10:06)
[2018-02-10] MEDS: SPIRONOLACTONE 25 MG TABLET PO SCH (10:06)
[2018-02-10] MEDS: DESITIN 4OZ/NYSTATIN 15 GRAM MIXTURE PASTE TOP SCH ×2 (10:12→21:03)
[2018-02-10] MEDS: AZELASTINE NASAL 137 MCG/SPRAY 30 ML BOTTLE BOTH NARES SCH ×2 (10:13→21:03)
[2018-02-10] MEDS: CHOLECALCIFEROL 400 UNIT TABLET PO SCH (10:16)
[2018-02-10] MEDS: ATORVASTATIN 10 MG TABLET PO SCH (21:03)
[2018-02-11] MEDS: metroNIDAZOLE 500 MG TABLET PO SCH ×2 (05:54→15:03)
[2018-02-11] MEDS ORDERED: LEVOTHYROXINE 75 MCG TABLET PO SCH (06:00)
[2018-02-11] MEDS: ALBUTEROL/IPRATROPIUM 3 ML NEB RESP TX SCH (07:36)
[2018-02-11] MEDS ORDERED: LEVOFLOXACIN INJ 500 MG in PREMIX 1 EACH IV SCH (09:30)
[2018-02-11] MEDS: CHOLECALCIFEROL 400 UNIT TABLET PO SCH (09:46)
[2018-02-11] MEDS: IRON (CARBONYL)/VIT C/B12/FA TABLET PO SCH (09:46)
[2018-02-11] MEDS: MONTELUKAST 10 MG TABLET PO SCH (09:46)
[2018-02-11] MEDS: COLESTIPOL 1 GM TABLET PO SCH (09:46)
[2018-02-11] MEDS: MAGNESIUM OXIDE 400 MG TABLET PO SCH (09:46)
[2018-02-11] MEDS: DILTIAZEM CD 180 MG CAPSULE PO SCH (09:47)
[2018-02-11] MEDS: PRAMIPEXOLE 0.25 MG TABLET PO SCH (09:47)
[2018-02-11] MEDS: AMIODARONE 200 MG TABLET PO SCH (09:47)
[2018-02-11] MEDS: GABAPENTIN 100 MG CAPSULE PO SCH (09:48)
[2018-02-11] MEDS: PANTOPRAZOLE 40 MG TABLET PO SCH (09:48)
[2018-02-11] MEDS: POTASSIUM CHLORIDE 20 MEQ TABLET PO SCH (09:48)
[2018-02-11] MEDS: SPIRONOLACTONE 25 MG TABLET PO SCH (09:48)
[2018-02-11] MEDS: ASPIRIN CHEW 81 MG TABLET PO SCH (09:48)
[2018-02-11] MEDS: DESITIN 4OZ/NYSTATIN 15 GRAM MIXTURE PASTE TOP SCH (09:49)
[2018-02-11] MEDS: AZELASTINE NASAL 137 MCG/SPRAY 30 ML BOTTLE BOTH NARES SCH (09:49)
[2018-02-11 14:57] VITALS: BP 114/59
[2018-02-11] MEDS: LEVOFLOXACIN 500 MG TABLET PO SCH (15:02)
== END 2018-02-11 14:56 | DRG 329 ==
LOC: N.RAD 18:47 → N.ICU 19:30 → N.5E 02-05 15:12
PROVIDERS: ADMIT Surgery; ATTEND Surgery

== ENCOUNTER 2019-03-28 20:20 | Inpatient (IN) ==
[2019-03-28 20:56] LABS: Basophils % 0.5 % (0.0-0.8); Eosinophils % 0.4 % (0.00-10.9); Hematocrit 47.8 VOL% (35.7-47.0); Hemoglobin 15.1 GM/DL (12.0-16.0); Immature Granulocytes % 0.2 %; Immature Granulocytes Absolute 0.01 #; Lymphocytes # 0.9 10*3/uL (1.4-4.0); Lymphocytes % 15.5 % (21.3-54.2); Mean Corpuscular HGB Conc 31.6 GM/DL (32-36); Mean Corpuscular Volume 101.7 FL (87-102); Mean Platelet Volume 11.1 FL (9.6-12.0); Monocytes % 14.2 % (1.7-12.7); Neutrophils % 69.2 % (38.7-73.9); Platelet Count 254 T/CUMM (130-400); Red Cell Distribution Width 14.5 % (9.3-17.3); White Blood Count 5.6 T/CUMM (4-12)
[2019-03-28 21:16] LABS: Albumin 3.9 G/DL (3.4-5.0); Bilirubin,Total 0.9 MG/DL (0.2-1.0); Calcium 9.4 MG/DL (8.5-10.1); Osmolality,Calculated 281.7 MOS/KG (273-304); Total Protein 8.4 G/DL (6.4-8.3)
[2019-03-28] MEDS ORDERED: SODIUM CHLORIDE 0.9% 1,000 ML IV STA (23:39)
[2019-03-29] MEDS ORDERED: DEXTROSE 5% LACTATED RINGERS 1,000 ML IV SCH (02:00)
[2019-03-29 02:09] LABS: Apearance,Urine CLOUDY (Clear); Bilirubin,Urine Negative (Negative); Blood, Urine Negative (Negative); Glucose,Urine (UA) Negative (Negative); Hyaline Casts,Urine 76 /LPF (0-3); Ketones,Urine 5 mg/dL (Negative); Mucus,Urine Occasional /LPF (Occasional); Nitrite,Urine Negative (Negative); Protein,Urine 30 MG/DL; RBC,Urine <1 /HPF (0-4); Squamous Epithelial Cell,Urine Occasional /HPF (0-10); Urine Color Amber (Yellow); Urine Specific Gravity 1.018 (1.001-1.035); Urine Urobilinogen < 2.0 EU/DL (0.2-1.0); WBC,Urine 1 /HPF (0-6)
[2019-03-29] MEDS ORDERED: hydrALAZINE 20 MG/1 ML VIAL IV PRN (03:16)
[2019-03-29] MEDS ORDERED: GLUCAGON 1 MG VIAL IM PRN (03:17)
[2019-03-29] MEDS ORDERED: DEXTROSE 50% 25 GM/50 ML VIAL IV PRN (03:17)
[2019-03-29] MEDS: DEXT 5% NACL 0.9% KCL 20 MEQ 20 MEQ/1,000 ML BAG IV SCH ×2 (04:25→15:58)
[2019-03-29] MEDS: ONDANSETRON 4 MG/2 ML VIAL IV PRN (06:22)
[2019-03-29 08:53] LABS: Basophils % 0.4 % (0.0-0.8); Eosinophils # 0.1 10*3/uL (0.0-0.87); Hematocrit 43.7 VOL% (35.7-47.0); Hemoglobin 13.7 GM/DL (12.0-16.0); Immature Granulocytes % 0.4 %; Immature Granulocytes Absolute 0.02 #; Lymphocytes # 0.8 10*3/uL (1.4-4.0); Lymphocytes % 15.3 % (21.3-54.2); Mean Corpuscular HGB Conc 31.4 GM/DL (32-36); Mean Corpuscular Volume 102.6 FL (87-102); Mean Platelet Volume 11.5 FL (9.6-12.0); Monocytes % 15.7 % (1.7-12.7); Neutrophils % 67.2 % (38.7-73.9); Platelet Count 232 T/CUMM (130-400); Red Blood Count 4.26 MC/CUMM (3.8-5.5); Red Cell Distribution Width 14.5 % (9.3-17.3)
[2019-03-29 09:17] LABS: Calcium 8.4 MG/DL (8.5-10.1); Osmolality,Calculated 285.2 MOS/KG (273-304)
[2019-03-29] MEDS: FAMOTIDINE 20 MG/2 ML VIAL IV SCH (09:45)
[2019-03-29 10:22] LABS: Band Neutrophils 22 % (0-10); Eosinophils 4 % (0-10); Lymphocytes 23 % (20-55); Platelet Estimate Normal; Polychromasia Slight; Segmented Neutrophils 40 % (50-85); Total Cells Counted 100
[2019-03-29] MEDS ORDERED: PHENOL 1.4% THROAT SPRAY 177 ML BOTTLE PO PRN (17:18)
[2019-03-30 05:36] LABS: Basophils % 0.5 % (0.0-0.8); Eosinophils # 0.1 10*3/uL (0.0-0.87); Eosinophils % 1.4 % (0.00-10.9); Hematocrit 43.5 VOL% (35.7-47.0); Hemoglobin 13.7 GM/DL (12.0-16.0); Immature Granulocytes % 0.4 %; Immature Granulocytes Absolute 0.02 #; Lymphocytes # 0.7 10*3/uL (1.4-4.0); Lymphocytes % 12.6 % (21.3-54.2); Mean Corpuscular HGB Conc 31.5 GM/DL (32-36); Mean Corpuscular Volume 104.1 FL (87-102); Mean Platelet Volume 12.1 FL (9.6-12.0); Monocytes % 15.3 % (1.7-12.7); Neutrophils % 69.8 % (38.7-73.9); Platelet Count 216 T/CUMM (130-400); Red Blood Count 4.18 MC/CUMM (3.8-5.5); Red Cell Distribution Width 14.6 % (9.3-17.3); White Blood Count 5.6 T/CUMM (4-12)
[2019-03-30] MEDS: DEXT 5% NACL 0.9% KCL 20 MEQ 20 MEQ/1,000 ML BAG IV SCH ×2 (05:58→18:16)
[2019-03-30 06:13] LABS: Calcium 8.7 MG/DL (8.5-10.1); Osmolality,Calculated 293.8 MOS/KG (273-304)
[2019-03-30] MEDS: FAMOTIDINE 20 MG/2 ML VIAL IV SCH (10:24)
[2019-03-30] MEDS: ONDANSETRON 4 MG/2 ML VIAL IV PRN (18:17)
[2019-03-31] MEDS: DEXT 5% NACL 0.9% KCL 20 MEQ 20 MEQ/1,000 ML BAG IV SCH (05:55)
[2019-03-31] MEDS: FAMOTIDINE 20 MG/2 ML VIAL IV SCH (10:03)
[2019-03-31] MEDS: methylPREDNISolone SOD SUC 40 MG/1 ML VIAL IV SCH ×2 (10:06→17:34)
[2019-03-31] MEDS: ALBUTEROL/IPRATROPIUM 3 ML NEB RESP TX SCH ×2 (14:55→19:20)
[2019-03-31] MEDS: DEXT 5% NACL 0.45% KCL 10 MEQ 10 MEQ/1,000 ML BAG IV SCH (18:00)
[2019-04-01] MEDS: ALBUTEROL/IPRATROPIUM 3 ML NEB RESP TX SCH ×4 (00:52→19:36)
[2019-04-01] MEDS: methylPREDNISolone SOD SUC 40 MG/1 ML VIAL IV SCH ×3 (01:18→19:50)
[2019-04-01 04:52] LABS: Basophils % 0.4 % (0.0-0.8); Hematocrit 47.1 VOL% (35.7-47.0); Hemoglobin 14.5 GM/DL (12.0-16.0); Immature Granulocytes % 0.9 %; Immature Granulocytes Absolute 0.08 #; Lymphocytes # 0.8 10*3/uL (1.4-4.0); Mean Corpuscular HGB Conc 30.8 GM/DL (32-36); Mean Corpuscular Volume 105.8 FL (87-102); Monocytes % 2.2 % (1.7-12.7); Neutrophils % 87.5 % (38.7-73.9); Platelet Count 250 T/CUMM (130-400); Red Blood Count 4.45 MC/CUMM (3.8-5.5); Red Cell Distribution Width 14.6 % (9.3-17.3); White Blood Count 9.1 T/CUMM (4-12)
[2019-04-01 05:24] LABS: Calcium 9.3 MG/DL (8.5-10.1); Osmolality,Calculated 293.6 MOS/KG (273-304)
[2019-04-01] MEDS: DEXT 5% NACL 0.45% KCL 10 MEQ 10 MEQ/1,000 ML BAG IV SCH (05:30)
[2019-04-01] MEDS ORDERED: LEVOFLOXACIN INJ 500 MG in PREMIX 1 EACH IV ONE (07:30)
[2019-04-01] MEDS ORDERED: metroNIDAZOLE INJ 500 MG in PREMIX 1 EACH IV ONE (07:31)
[2019-04-01] MEDS: FAMOTIDINE 20 MG/2 ML VIAL IV SCH ×2 (09:52→19:49)
[2019-04-01] MEDS ORDERED: EPINEPHrine 1 MG/ML VIAL ONE (11:33)
[2019-04-01] MEDS ORDERED: BUPIVACAINE 0.5% 50 ML VIAL ONE (11:33)
[2019-04-01] MEDS ORDERED: DEXAMETHASONE 4 MG/1 ML VIAL ONE ×2 (11:34→15:01)
[2019-04-01] MEDS ORDERED: fentaNYL 100 MCG/2 ML VIAL ONE (14:59)
[2019-04-01] MEDS ORDERED: SEVOFLURANE 1 UNIT/15 MINUTE INH ONE (14:59)
[2019-04-01] MEDS ORDERED: SUCCINYLCHOLINE 200 MG/10 ML VIAL ONE (15:00)
[2019-04-01] MEDS ORDERED: ROCURONIUM 100 MG/10 ML VIAL IV ONE (15:00)
[2019-04-01] MEDS ORDERED: PROPOFOL 200 MG/20 ML VIAL IV ONE (15:00)
[2019-04-01] MEDS ORDERED: GLYCOPYRROLATE 0.4 MG/2 ML VIAL ONE ×2 (15:01)
[2019-04-01] MEDS ORDERED: ACETAMINOPHEN 1,000 MG/100 ML VIAL IV ONE (15:01)
[2019-04-01] MEDS ORDERED: ONDANSETRON 4 MG/2 ML VIAL ONE ×2 (15:01→15:24)
[2019-04-01] MEDS ORDERED: PHENYLEPHRINE 1 MG/10 ML SYRINGE IV ONE (15:01)
[2019-04-01] MEDS ORDERED: LACTATED RINGERS 1,000 ML IV ONE (15:02)
[2019-04-01] MEDS ORDERED: NEOSTIGMINE 10 MG/10 ML VIAL ONE (15:02)
[2019-04-01] MEDS ORDERED: MIDAZOLAM 2 MG/2 ML VIAL ONE (15:03)
[2019-04-01] MEDS ORDERED: HYDROmorphone 2 MG/1 ML VIAL IV PRN (15:22)
[2019-04-01] MEDS ORDERED: ONDANSETRON 4 MG/2 ML VIAL IV PRN (15:22)
[2019-04-01 15:24] LABS: Apearance,Urine CLOUDY (Clear); Bilirubin,Urine Negative (Negative); Blood, Urine Negative (Negative); Glucose,Urine (UA) Negative (Negative); Hyaline Casts,Urine 86 /LPF (0-3); Ketones,Urine Negative (Negative); Mucus,Urine Occasional /LPF (Occasional); Nitrite,Urine Negative (Negative); Protein,Urine Negative; Urine Color Yellow (Yellow); Urine Urobilinogen < 2.0 EU/DL (0.2-1.0)
[2019-04-01] MEDS ORDERED: HYDROmorphone 2 MG/1 ML VIAL ONE (15:24)
[2019-04-01 15:29] LABS: Bacteria,Urine Many /HPF (Few)
[2019-04-01] MEDS: DEXTROSE 5% LACTATED RINGERS 1,000 ML IV SCH (16:00)
[2019-04-01 16:55] LABS: Hematocrit 47.5 VOL% (35.7-47.0); Hemoglobin 14.8 GM/DL (12.0-16.0)
[2019-04-01] MEDS: DEXTROSE 5% NACL 0.22% 1,000 ML IV SCH ×2 (20:17→21:04)
[2019-04-01] MEDS: metroNIDAZOLE INJ 500 MG in PREMIX 1 EACH IV SCH (21:05)
[2019-04-01] MEDS ORDERED: ALBUMIN 5% 12.5 GM in PREMIX 1 EACH IV ONE (21:39)
[2019-04-01 21:57] LABS: Hematocrit 46.5 VOL% (35.7-47.0); Hemoglobin 14.2 GM/DL (12.0-16.0)
[2019-04-02] MEDS: MORPHINE 4 MG/1 ML VIAL IV PRN ×3 (00:18→23:08)
[2019-04-02] MEDS: ALBUTEROL/IPRATROPIUM 3 ML NEB RESP TX SCH ×4 (00:58→20:30)
[2019-04-02] MEDS: DEXTROSE 5% LACTATED RINGERS 1,000 ML IV SCH ×3 (02:11→21:40)
[2019-04-02] MEDS: methylPREDNISolone SOD SUC 40 MG/1 ML VIAL IV SCH ×4 (02:30→21:40)
[2019-04-02] MEDS: FAMOTIDINE 20 MG/2 ML VIAL IV SCH ×2 (02:30→15:10)
[2019-04-02] MEDS: metroNIDAZOLE INJ 500 MG in PREMIX 1 EACH IV SCH (06:20)
[2019-04-02 06:28] LABS: Basophils # 0.1 10*3/uL (0.0-0.2); Basophils % 0.6 % (0.0-0.8); Hematocrit 44.8 VOL% (35.7-47.0); Hemoglobin 13.6 GM/DL (12.0-16.0); Immature Granulocytes % 0.5 %; Immature Granulocytes Absolute 0.07 #; Lymphocytes # 0.5 10*3/uL (1.4-4.0); Lymphocytes % 3.4 % (21.3-54.2); Mean Corpuscular HGB Conc 30.4 GM/DL (32-36); Mean Corpuscular Volume 105.9 FL (87-102); Mean Platelet Volume 11.8 FL (9.6-12.0); Monocytes % 3.5 % (1.7-12.7); Platelet Count 193 T/CUMM (130-400); Red Blood Count 4.23 MC/CUMM (3.8-5.5); Red Cell Distribution Width 14.6 % (9.3-17.3)
[2019-04-02 06:30] LABS: Albumin 2.7 G/DL (3.4-5.0); Bilirubin,Total 0.4 MG/DL (0.2-1.0); Calcium 8.9 MG/DL (8.5-10.1); Total Protein 6.3 G/DL (6.4-8.3)
[2019-04-02 06:39] LABS: Band Neutrophils 7 % (0-10); Lymphocytes 5 % (20-55); Myelocytes 1 %; Segmented Neutrophils 82 % (50-85); Total Cells Counted 100
[2019-04-02 06:40] LABS: Hypochromasia Slight; Platelet Estimate Normal
[2019-04-02 06:41] LABS: Polychromasia Few
[2019-04-02] MEDS ORDERED: LEVOFLOXACIN INJ 500 MG in PREMIX 1 EACH IV SCH (08:33)
[2019-04-02] MEDS: INSULIN REGULAR 100 UNIT/ML SUBCUT SCH ×4 (09:05→21:46)
[2019-04-02] MEDS: DEXTROSE 5% NACL 0.22% 1,000 ML IV SCH (14:56)
[2019-04-02] MEDS ORDERED: ALBUTEROL/IPRATROPIUM 3 ML NEB RESP TX PRN (18:44)
[2019-04-02] MEDS: FLUTICASONE 50 MCG NASAL SPRAY 16 GM BOTTLE BOTH NARES SCH (21:40)
[2019-04-02] MEDS: PRAMIPEXOLE 0.25 MG TABLET PO SCH (21:40)
[2019-04-02] MEDS: GABAPENTIN 300 MG CAPSULE PO SCH (21:40)
[2019-04-03] MEDS: DEXTROSE 5% LACTATED RINGERS 1,000 ML IV SCH ×3 (00:51→06:24)
[2019-04-03] MEDS: ALBUTEROL/IPRATROPIUM 3 ML NEB RESP TX SCH ×4 (01:25→19:20)
[2019-04-03] MEDS: FAMOTIDINE 20 MG/2 ML VIAL IV SCH ×2 (03:38→14:45)
[2019-04-03] MEDS: LEVOTHYROXINE 100 MCG TABLET PO SCH (06:24)
[2019-04-03] MEDS: GABAPENTIN 300 MG CAPSULE PO SCH ×3 (08:46→21:38)
[2019-04-03] MEDS: MONTELUKAST 10 MG TABLET PO SCH (08:46)
[2019-04-03] MEDS: MAGNESIUM OXIDE 400 MG TABLET PO SCH (08:46)
[2019-04-03] MEDS: AMIODARONE 200 MG TABLET PO SCH (08:46)
[2019-04-03] MEDS: POTASSIUM CHLORIDE 20 MEQ TABLET PO SCH (08:46)
[2019-04-03] MEDS: SPIRONOLACTONE 25 MG TABLET PO SCH (08:46)
[2019-04-03] MEDS: PRAMIPEXOLE 0.25 MG TABLET PO SCH ×2 (08:46→21:38)
[2019-04-03] MEDS: INSULIN REGULAR 100 UNIT/ML SUBCUT SCH ×4 (08:47→21:48)
[2019-04-03] MEDS: ASPIRIN EC 81 MG TABLET PO SCH (08:47)
[2019-04-03] MEDS: methylPREDNISolone SOD SUC 40 MG/1 ML VIAL IV SCH ×2 (08:48→21:45)
[2019-04-03] MEDS ORDERED: metroNIDAZOLE INJ 500 MG in PREMIX 1 EACH IV SCH (10:00)
[2019-04-03] MEDS: FLUTICASONE 50 MCG NASAL SPRAY 16 GM BOTTLE BOTH NARES SCH ×2 (10:24→21:48)
[2019-04-03 15:00] LABS: Basophils # 0.1 10*3/uL (0.0-0.2); Basophils % 0.4 % (0.0-0.8); Hematocrit 43.5 VOL% (35.7-47.0); Hemoglobin 13.3 GM/DL (12.0-16.0); Immature Granulocytes Absolute 0.34 #; Lymphocytes # 0.6 10*3/uL (1.4-4.0); Lymphocytes % 3.6 % (21.3-54.2); Mean Corpuscular HGB Conc 30.6 GM/DL (32-36); Mean Corpuscular Volume 103.8 FL (87-102); Mean Platelet Volume 10.9 FL (9.6-12.0); Monocytes % 3.8 % (1.7-12.7); Neutrophils % 90.2 % (38.7-73.9); Platelet Count 208 T/CUMM (130-400); Red Blood Count 4.19 MC/CUMM (3.8-5.5); Red Cell Distribution Width 14.7 % (9.3-17.3); White Blood Count 16.8 T/CUMM (4-12)
[2019-04-03 15:09] LABS: Calcium 8.7 MG/DL (8.5-10.1); Osmolality,Calculated 281.4 MOS/KG (273-304)
[2019-04-03 15:40] LABS: Hypochromasia Slight; Lymphocytes 4 % (20-55); Platelet Estimate Normal; Segmented Neutrophils 93 % (50-85); Total Cells Counted 100
[2019-04-03] MEDS: cefTRIAXone 1,000 MG in SYRINGE 1 EACH IV SCH (16:57)
[2019-04-03] MEDS: metroNIDAZOLE INJ 500 MG in PREMIX 1 EACH IV SCH ×2 (17:41→23:52)
[2019-04-04] MEDS: ALBUTEROL/IPRATROPIUM 3 ML NEB RESP TX SCH ×4 (01:15→19:15)
[2019-04-04] MEDS: FAMOTIDINE 20 MG/2 ML VIAL IV SCH ×2 (02:13→14:22)
[2019-04-04 05:05] LABS: Basophils % 0.2 % (0.0-0.8); Hematocrit 40.6 VOL% (35.7-47.0); Hemoglobin 12.8 GM/DL (12.0-16.0); Immature Granulocytes % 1.9 %; Lymphocytes # 0.6 10*3/uL (1.4-4.0); Lymphocytes % 3.8 % (21.3-54.2); Mean Corpuscular HGB Conc 31.5 GM/DL (32-36); Mean Platelet Volume 11.4 FL (9.6-12.0); Monocytes % 2.3 % (1.7-12.7); Neutrophils % 91.8 % (38.7-73.9); Platelet Count 203 T/CUMM (130-400); Red Blood Count 3.94 MC/CUMM (3.8-5.5); Red Cell Distribution Width 14.7 % (9.3-17.3); White Blood Count 15.5 T/CUMM (4-12)
[2019-04-04 05:27] LABS: Calcium 8.2 MG/DL (8.5-10.1); Osmolality,Calculated 281.4 MOS/KG (273-304)
[2019-04-04 05:37] LABS: Anisocytosis 2+; Band Neutrophils 1 % (0-10); Lymphocytes 6 % (20-55); Macrocytosis 2+; Platelet Estimate Normal; Segmented Neutrophils 91 % (50-85); Total Cells Counted 100
[2019-04-04] MEDS: LEVOTHYROXINE 100 MCG TABLET PO SCH (06:09)
[2019-04-04] MEDS: INSULIN REGULAR 100 UNIT/ML SUBCUT SCH ×4 (08:00→22:19)
[2019-04-04] MEDS: ASPIRIN EC 81 MG TABLET PO SCH (09:28)
[2019-04-04] MEDS: GABAPENTIN 300 MG CAPSULE PO SCH ×3 (09:29→22:19)
[2019-04-04] MEDS: SPIRONOLACTONE 25 MG TABLET PO SCH (09:29)
[2019-04-04] MEDS: MONTELUKAST 10 MG TABLET PO SCH (09:32)
[2019-04-04] MEDS: PRAMIPEXOLE 0.25 MG TABLET PO SCH ×2 (09:32→22:18)
[2019-04-04] MEDS: MAGNESIUM OXIDE 400 MG TABLET PO SCH (09:33)
[2019-04-04] MEDS: AMIODARONE 200 MG TABLET PO SCH (09:33)
[2019-04-04] MEDS: POTASSIUM CHLORIDE 20 MEQ TABLET PO SCH (09:33)
[2019-04-04] MEDS: methylPREDNISolone SOD SUC 40 MG/1 ML VIAL IV SCH (09:34)
[2019-04-04] MEDS: metroNIDAZOLE INJ 500 MG in PREMIX 1 EACH IV SCH ×2 (09:34→16:31)
[2019-04-04] MEDS: FLUTICASONE 50 MCG NASAL SPRAY 16 GM BOTTLE BOTH NARES SCH ×2 (09:39→22:19)
[2019-04-04] MEDS: DEXTROSE 5% LACTATED RINGERS 1,000 ML IV SCH (10:58)
[2019-04-04] MEDS: cefTRIAXone 1,000 MG in SYRINGE 1 EACH IV SCH (16:31)
[2019-04-05] MEDS: metroNIDAZOLE INJ 500 MG in PREMIX 1 EACH IV SCH ×3 (01:03→15:47)
[2019-04-05] MEDS: ALBUTEROL/IPRATROPIUM 3 ML NEB RESP TX SCH ×4 (01:21→20:14)
[2019-04-05] MEDS: FAMOTIDINE 20 MG/2 ML VIAL IV SCH ×2 (03:27→15:43)
[2019-04-05 05:16] LABS: Basophils # 0.1 10*3/uL (0.0-0.2); Basophils % 0.3 % (0.0-0.8); Hematocrit 41.1 VOL% (35.7-47.0); Hemoglobin 12.7 GM/DL (12.0-16.0); Immature Granulocytes % 1.5 %; Immature Granulocytes Absolute 0.23 #; Lymphocytes # 0.8 10*3/uL (1.4-4.0); Lymphocytes % 4.8 % (21.3-54.2); Mean Corpuscular HGB Conc 30.9 GM/DL (32-36); Mean Corpuscular Volume 102.8 FL (87-102); Mean Platelet Volume 11.4 FL (9.6-12.0); Monocytes % 4.8 % (1.7-12.7); Neutrophils % 88.6 % (38.7-73.9); Platelet Count 217 T/CUMM (130-400); Red Cell Distribution Width 14.6 % (9.3-17.3); White Blood Count 15.5 T/CUMM (4-12)
[2019-04-05 05:31] LABS: Calcium 8.3 MG/DL (8.5-10.1); Osmolality,Calculated 282.3 MOS/KG (273-304)
[2019-04-05] MEDS: LEVOTHYROXINE 100 MCG TABLET PO SCH (06:20)
[2019-04-05 06:47] LABS: Band Neutrophils 2 % (0-10); Lymphocytes 5 % (20-55); Platelet Estimate Normal; Segmented Neutrophils 89 % (50-85); Total Cells Counted 100
[2019-04-05] MEDS: INSULIN REGULAR 100 UNIT/ML SUBCUT SCH ×4 (08:31→20:17)
[2019-04-05] MEDS: MAGNESIUM OXIDE 400 MG TABLET PO SCH (08:32)
[2019-04-05] MEDS: MONTELUKAST 10 MG TABLET PO SCH (08:32)
[2019-04-05] MEDS: PRAMIPEXOLE 0.25 MG TABLET PO SCH ×2 (08:32→20:18)
[2019-04-05] MEDS: POTASSIUM CHLORIDE 20 MEQ TABLET PO SCH (08:33)
[2019-04-05] MEDS: ASPIRIN EC 81 MG TABLET PO SCH (08:33)
[2019-04-05] MEDS: SPIRONOLACTONE 25 MG TABLET PO SCH (08:33)
[2019-04-05] MEDS: GABAPENTIN 300 MG CAPSULE PO SCH ×3 (08:33→20:18)
[2019-04-05] MEDS: AMIODARONE 200 MG TABLET PO SCH (08:34)
[2019-04-05] MEDS: FLUTICASONE 50 MCG NASAL SPRAY 16 GM BOTTLE BOTH NARES SCH ×2 (08:36→20:18)
[2019-04-05] MEDS: cefTRIAXone 1,000 MG in SYRINGE 1 EACH IV SCH (15:47)
[2019-04-06] MEDS: metroNIDAZOLE INJ 500 MG in PREMIX 1 EACH IV SCH ×2 (00:02→09:03)
[2019-04-06] MEDS: ALBUTEROL/IPRATROPIUM 3 ML NEB RESP TX SCH ×2 (01:17→07:42)
[2019-04-06] MEDS: FAMOTIDINE 20 MG/2 ML VIAL IV SCH (04:35)
[2019-04-06 05:42] LABS: Basophils # 0.1 10*3/uL (0.0-0.2); Basophils % 0.4 % (0.0-0.8); Eosinophils # 0.1 10*3/uL (0.0-0.87); Eosinophils % 0.4 % (0.00-10.9); Hematocrit 47.7 VOL% (35.7-47.0); Immature Granulocytes % 1.3 %; Lymphocytes # 0.9 10*3/uL (1.4-4.0); Mean Corpuscular HGB Conc 31.2 GM/DL (32-36); Mean Corpuscular Volume 103.2 FL (87-102); Mean Platelet Volume 11.2 FL (9.6-12.0); Monocytes % 7.1 % (1.7-12.7); Neutrophils % 84.8 % (38.7-73.9); Platelet Count 229 T/CUMM (130-400); Red Blood Count 4.62 MC/CUMM (3.8-5.5); Red Cell Distribution Width 14.7 % (9.3-17.3); White Blood Count 15.8 T/CUMM (4-12)
[2019-04-06 06:05] LABS: Hemoglobin 14.9 GM/DL (12.0-16.0)
[2019-04-06] MEDS: LEVOTHYROXINE 100 MCG TABLET PO SCH (06:05)
[2019-04-06 06:07] LABS: Calcium 8.1 MG/DL (8.5-10.1); Osmolality,Calculated 281.3 MOS/KG (273-304)
[2019-04-06] MEDS: INSULIN REGULAR 100 UNIT/ML SUBCUT SCH ×2 (08:04→12:30)
[2019-04-06] MEDS: MONTELUKAST 10 MG TABLET PO SCH (09:03)
[2019-04-06] MEDS: MAGNESIUM OXIDE 400 MG TABLET PO SCH (09:03)
[2019-04-06] MEDS: ASPIRIN EC 81 MG TABLET PO SCH (09:03)
[2019-04-06] MEDS: PRAMIPEXOLE 0.25 MG TABLET PO SCH (09:03)
[2019-04-06] MEDS: SPIRONOLACTONE 25 MG TABLET PO SCH (09:04)
[2019-04-06] MEDS: POTASSIUM CHLORIDE 20 MEQ TABLET PO SCH (09:04)
[2019-04-06] MEDS: AMIODARONE 200 MG TABLET PO SCH ×2 (09:04→09:07)
[2019-04-06] MEDS: FLUTICASONE 50 MCG NASAL SPRAY 16 GM BOTTLE BOTH NARES SCH (09:04)
[2019-04-06] MEDS: GABAPENTIN 300 MG CAPSULE PO SCH (09:04)
[2019-04-06 11:46] VITALS: BP 139/71
== END 2019-04-06 13:20 | disposition swing bed (61) | DRG 330 ==
LOC: N.ED 20:20 → SUATTDRO 03-29 01:48 → N.EDINP 03-29 01:48 → N.3E 03-29 02:25 → N.ICU 04-01 14:59 → N.3E 04-02 18:27
PROVIDERS: ADMIT Surgery; ATTEND Surgery

== ENCOUNTER 2021-03-09 13:30 | Inpatient (IN) ==
[2021-03-09] MEDS ORDERED: GLUCAGON 1 MG VIAL IM PRN (16:02)
[2021-03-09] MEDS ORDERED: ONDANSETRON 4 MG/2 ML VIAL IV PRN (16:02)
[2021-03-09] MEDS ORDERED: ALBUTEROL/IPRATROPIUM 3 ML NEB RESP TX PRN (16:02)
[2021-03-09] MEDS ORDERED: ACETAMINOPHEN 325 MG TABLET PO PRN (16:02)
[2021-03-09] MEDS ORDERED: DEXTROSE 50% 25 GM/50 ML VIAL IV PRN (16:02)
[2021-03-09] MEDS ORDERED: hydrALAZINE 20 MG/1 ML VIAL IV PRN (16:02)
[2021-03-09] MEDS: INSULIN LISPRO 100 UNIT/ML SUBCUT SCH ×2 (18:04→20:58)
[2021-03-09] MEDS: SODIUM CHLORIDE 0.9% 1,000 ML IV SCH (18:24)
[2021-03-09] MEDS: DILTIAZEM CD 180 MG CAPSULE PO SCH (18:25)
[2021-03-09 20:35] LABS: Calcium 8.7 MG/DL (8.5-10.1); Osmolality,Calculated 287.1 MOS/KG (273-304)
[2021-03-09] MEDS: GABAPENTIN 300 MG CAPSULE PO SCH (22:30)
[2021-03-09] MEDS: MEROPENEM 500 MG in SODIUM CHLORIDE 0.9% 100 ML IV SCH (22:31)
[2021-03-09] MEDS: PRAMIPEXOLE 0.25 MG TABLET PO SCH (22:31)
[2021-03-10] MEDS: SODIUM CHLORIDE 0.9% 1,000 ML IV SCH ×2 (03:00→12:55)
[2021-03-10 04:55] LABS: Basophils % 0.3 % (0.0-0.8); Eosinophils # 0.2 10*3/uL (0.0-0.87); Eosinophils % 1.6 % (0.00-10.9); Hematocrit 34.7 VOL% (35.7-47.0); Hemoglobin 11.2 GM/DL (12.0-16.0); Immature Granulocytes % 1.2 %; Immature Granulocytes Absolute 0.12 #; Lymphocytes # 0.8 10*3/uL (1.4-4.0); Lymphocytes % 7.7 % (21.3-54.2); Mean Corpuscular HGB Conc 32.3 GM/DL (32-36); Mean Corpuscular Volume 101.5 FL (87-102); Mean Platelet Volume 12.3 FL (9.6-12.0); Monocytes % 10.2 % (1.7-12.7); Platelet Count 210 T/CUMM (130-400); Red Blood Count 3.42 MC/CUMM (3.8-5.5); Red Cell Distribution Width 15.3 % (9.3-17.3); White Blood Count 9.8 T/CUMM (4-12)
[2021-03-10] MEDS: MEROPENEM 500 MG in SODIUM CHLORIDE 0.9% 100 ML IV SCH ×3 (05:14→20:17)
[2021-03-10 05:32] LABS: Albumin 1.9 G/DL (3.4-5.0); Bilirubin,Total 9.6 MG/DL (0.20-1.00); Calcium 8.7 MG/DL (8.5-10.1); Osmolality,Calculated 285.7 MOS/KG (273-304); Total Protein 5.9 G/DL (6.4-8.2)
[2021-03-10 05:52] LABS: Hypochromasia 1+
[2021-03-10 05:53] LABS: Macrocytosis 1+; Platelet Estimate Normal
[2021-03-10] MEDS: LEVOTHYROXINE 75 MCG TABLET PO SCH (07:26)
[2021-03-10] MEDS: ASPIRIN 325 MG TABLET PO SCH (08:54)
[2021-03-10] MEDS: GABAPENTIN 300 MG CAPSULE PO SCH ×3 (08:54→20:20)
[2021-03-10] MEDS: PANTOPRAZOLE 40 MG TABLET PO SCH (08:55)
[2021-03-10] MEDS: rOPINIRole 0.25 MG TABLET PO SCH (08:56)
[2021-03-10] MEDS: MONTELUKAST 10 MG TABLET PO SCH (08:56)
[2021-03-10] MEDS ORDERED: INDOMETHACIN SUPP 50 MG SUPP RECTAL ONE (09:00)
[2021-03-10] MEDS: INSULIN LISPRO 100 UNIT/ML SUBCUT SCH ×4 (09:16→20:32)
[2021-03-10] MEDS: DILTIAZEM CD 180 MG CAPSULE PO SCH (09:18)
[2021-03-10] MEDS: LACTATED RINGERS 1,000 ML IV SCH (09:31)
[2021-03-10] MEDS ORDERED: ONDANSETRON 4 MG/2 ML VIAL ONE (10:45)
[2021-03-10] MEDS ORDERED: propofoL 200 MG/20 ML VIAL IV ONE (10:45)
[2021-03-10] MEDS ORDERED: SEVOFLURANE 1 UNIT/15 MINUTE INH ONE ×2 (10:45→11:42)
[2021-03-10] MEDS ORDERED: SUCCINYLCHOLINE 200 MG/10 ML VIAL ONE (10:45)
[2021-03-10] MEDS ORDERED: ROCURONIUM 50 MG/5 ML VIAL IV ONE (10:45)
[2021-03-10] MEDS ORDERED: LIDOCAINE 2% 5 ML VIAL ONE (10:45)
[2021-03-10] MEDS ORDERED: ETOMIDATE 20 MG/10 ML VIAL IV ONE (11:43)
[2021-03-10] MEDS: ENOXAPARIN 40 MG/0.4 ML SYRINGE SUBCUT SCH ×2 (12:55→16:35)
[2021-03-10] MEDS: hydroCHLOROthiazide 25 MG TABLET PO SCH (20:16)
[2021-03-10] MEDS: PRAMIPEXOLE 0.25 MG TABLET PO SCH (20:20)
[2021-03-11] MEDS: SODIUM CHLORIDE 0.9% 1,000 ML IV SCH (01:18)
[2021-03-11 05:37] LABS: Basophils # 0.1 10*3/uL (0.0-0.2); Basophils % 0.7 % (0.0-0.8); Eosinophils # 0.2 10*3/uL (0.0-0.87); Eosinophils % 2.8 % (0.00-10.9); Hematocrit 34.8 VOL% (35.7-47.0); Hemoglobin 11.3 GM/DL (12.0-16.0); Immature Granulocytes % 1.6 %; Immature Granulocytes Absolute 0.13 #; Lymphocytes # 0.9 10*3/uL (1.4-4.0); Lymphocytes % 10.9 % (21.3-54.2); Mean Corpuscular HGB Conc 32.5 GM/DL (32-36); Mean Corpuscular Volume 103.6 FL (87-102); Monocytes % 10.8 % (1.7-12.7); Neutrophils % 73.2 % (38.7-73.9); Platelet Count 217 T/CUMM (130-400); Red Blood Count 3.36 MC/CUMM (3.8-5.5); Red Cell Distribution Width 15.9 % (9.3-17.3); White Blood Count 8.3 T/CUMM (4-12)
[2021-03-11] MEDS: MEROPENEM 500 MG in SODIUM CHLORIDE 0.9% 100 ML IV SCH (05:57)
[2021-03-11] MEDS: LEVOTHYROXINE 75 MCG TABLET PO SCH (05:58)
[2021-03-11 06:05] LABS: Albumin 1.7 G/DL (3.4-5.0); Bilirubin,Total 7.2 MG/DL (0.20-1.00); Calcium 8.1 MG/DL (8.5-10.1); Osmolality,Calculated 284.5 MOS/KG (273-304); Potassium 4.1 MMOL/L (3.5-5.1); Total Protein 5.5 G/DL (6.4-8.2)
[2021-03-11 06:35] LABS: Anisocytosis Slight; Macrocytosis 2+; Platelet Estimate Normal
[2021-03-11] MEDS ORDERED: rOPINIRole 0.25 MG TABLET PO SCH (09:00)
[2021-03-11] MEDS ORDERED: NON-FORMULARY MEDICATION (Fluticasone-Umeclidin-Vilanter [Trelegy Ellipta] 100-62.5-25 mcg INH SCH (09:00)
[2021-03-11] MEDS ORDERED: CHOLECALCIFEROL 1,000 UNIT TABLET PO SCH (09:00)
[2021-03-11] MEDS ORDERED: FERROUS SULFATE 325 MG TABLET PO SCH (09:00)
[2021-03-11] MEDS: rOPINIRole 0.25 MG TABLET PO SCH (09:26)
[2021-03-11] MEDS: MONTELUKAST 10 MG TABLET PO SCH (09:27)
[2021-03-11] MEDS: hydroCHLOROthiazide 25 MG TABLET PO SCH (09:27)
[2021-03-11] MEDS: GABAPENTIN 300 MG CAPSULE PO SCH (09:27)
[2021-03-11] MEDS: PANTOPRAZOLE 40 MG TABLET PO SCH (09:28)
[2021-03-11] MEDS: DILTIAZEM CD 180 MG CAPSULE PO SCH (09:28)
[2021-03-11 11:19] VITALS: BP 92/60
[2021-03-11] MEDS: INSULIN LISPRO 100 UNIT/ML SUBCUT SCH (11:31)
[2021-03-11] MEDS: LACTATED RINGERS 1,000 ML IV SCH (11:36)
[2021-03-11] MEDS: ASPIRIN 325 MG TABLET PO SCH (11:37)
== END 2021-03-11 15:28 | disposition home or self-care (01) | DRG 445 ==
LOC: SUATTDRO 14:59 → N.3E 14:59
PROVIDERS: ADMIT Internal Medicine; ATTEND Phlebology
PROC: ERCPWSP (ICD-10-PCS; 2021-03-10 09:05)